=== PATIENT | female | born 2000 | race Caucasian/White ===

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

== ENCOUNTER 2021-01-20 18:13 | Emergency (ER) | payer OTHER, SELFPAY ==
--- NOTE | ~2021-01-20 | XR_ITS ---
EXAMINATION: XR hand RT min 3V DATE: 01/20/2021 18:34 INDICATION: Right hand injury. TECHNIQUE: 3 views of right hand were obtained. COMPARISON: None. FINDINGS: Bone alignment is normal. No fracture. Joint spaces are well maintained. IMPRESSION: 1. Normal right hand. Reviewed, dictated and finalized at location A. 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 Normal right hand.
--- NOTE | 2021-01-20 18:21 | ED.UPPEXIN ---
HPI - Extremity Injury (Upper) General Chief Complaint: Extremity Injury, Upper Stated Complaint: Right Thumb Pain Time Seen by Provider: 01/20/21 18:21 Source: patient, RN notes reviewed and old records reviewed History of Present Illness HPI narrative: 20-year-old female presents to the [facility] with complaints of right base of thumb palmar aspect pain swelling and bruising. Patient states that she tripped and fell yesterday. MD complaint: injury to: right Related Data Home Medications Medication Instructions Recorded Confirmed medroxyprogesterone [Depo-Provera] 150 mg IM DIRECTED 01/20/21 01/20/21 Allergies Allergy/AdvReac Type Severity Reaction Status Date / Time lidocaine gargle Allergy Intermediate swelling Uncoded 01/20/21 18:25 Cat Dander Allergy Unknown RASH Uncoded 01/20/21 18:25 Grass Allergy Unknown Unknown Uncoded 01/20/21 18:25 HAY AdvReac Mild Unknown Uncoded 01/20/21 18:25 Review of Systems Review of Systems: All systems reviewed & are unremarkable except as noted in HPI and below Constitutional: Constitutional: Reports no additional constitutional complaints Eyes: Eyes: Reports no additional eye complaints ENT: Reports system reviewed and no additional complaints, except as documented Cardiovascular: Cardiovascular: Reports no additional cardiovascular complaints Respiratory: Respiratory: Reports no additional respiratory complaints Musculoskeletal: Musculoskeletal: Reports as per HPI Comments: [place]airez aspect right hand base of thumb, bruising, swelling tenderness Integumentary/Breasts: Skin/Breast: Reports as per HPI and Denies erythema Neurologic: Reports system reviewed and no additional complaints, except as documented Psychiatric: Psychiatric: Reports no additional psychiatric complaints Allergic/Immunologic: Allergic/Immunologic: Reports no additional allergic/immunologic complaints [facility] Past Medical History Medical History 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, adult Hyponatremia nursing home current use of hormonal contraceptive Surgical History Surgical History History of bunionectomy [place] teeth removed Family History Family History Grandparent Family history of osteoporosis Family history of malignant neoplasm of ovary Mother Depression Family history of migraine headaches Asthma Other Family history of alcoholism Family history of arthritis Family history of malignant neoplasm Hypertension Social History Social History Smoking status: Never smoker Second hand tobacco smoke exposure: No Alcohol intake: never Substance use: never Substance use type: does not use 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 Gender identity (if verbalized by the patient): Female Comments At the time of my signature, I reviewed and agree with the nursing past medical, surgical, social, and family history. There is no relevant family history pertinent to the patient complaint. Exam Const: General: healthy appearing, no acute distress and alert Nutritional Appearance: well nourished Orientation/consciousness: patient oriented x3 Limitations: no limitations HENMT: Head: normal to inspection Eyes: Pupils: Equal, round and reactive pupils present Neck: Neck: normal visual inspection, no lymphadenopathy and no meningeal signs Chest: Chest palpation & inspection: normal inspection of the chest Resp: Effort & Inspection: normal respiratory effort Cardio: Rate: regular rate Back/Spine/Pelvis: Back: no CVA tenderness Skin: General skin exam: normal color Wounds: no wounds Neuro: General: patient oriented x3, moves all extremities, no meningeal signs and no focal motor deficits Speech: normal speech Gait exam (Neuro): Normal gait present Extrem: General:
[2021-01-20 18:23] VITALS: BP 133/80; PULSE 78; RESP 16; TEMP 37.2; O2SAT 100
== END 2021-01-20 18:55 | disposition home or self-care (01) ==
PROVIDERS: Emergency Provider Nurse Practitioner
DX: S60.221A Contusion of right hand, initial encounter (principal); W01.0XXA Fall on same level from slipping, tripping and stumbling without subsequent striking against object, initial encounter
CPT/HCPCS: 73130; 99213; G0463

== ENCOUNTER 2021-06-26 19:26 | Emergency (ER) | payer OTHER, SELFPAY ==
[2021-06-26 19:38] VITALS: BP 126/77; PULSE 99; RESP 16; TEMP 37.7; O2SAT 100
--- NOTE | 2021-06-26 19:48 | ED.GENADULT ---
HPI - General Adult General Chief complaint: Upper Respiratory Infection Stated complaint: Congestion Time Seen by Provider: 06/26/21 19:48 Source: patient and RN notes reviewed Mode of arrival: ambulatory Limitations: no limitations History of Present Illness HPI narrative: 21 y/o female presented for c/o sinus congestion and cough for about 2 weeks. States it causes headache and hoarse voice. Taking otc meds without relief. Denies sick contacts. Denies sob, wheezing, n/v/d/f/c. Related Data Home Medications Medication Instructions Recorded Confirmed medroxyprogesterone [Depo-Provera] 150 mg IM DIRECTED 01/20/21 01/20/21 Allergies Allergy/AdvReac Type Severity Reaction Status Date / Time lidocaine gargle Allergy Intermediate swelling Uncoded 04/23/21 12:16 Cat Dander Allergy Unknown RASH Uncoded 04/23/21 12:16 Grass Allergy Unknown Unknown Uncoded 04/23/21 12:16 HAY AdvReac Mild Unknown Uncoded 04/23/21 12:16 Review of Systems Review of Systems: CONSTITUTIONAL: denies malaise, chills, sweats, fever EYES: Denies visual changes, redness, or discharge ENT: Reports rhinorrhea, congestion, sinus pain, denies otalgia, sore throat CARDIOVASCULAR: Denies chest pain, palpitations, edema RESPIRATORY: Reports cough, post nasal drainage. Denies dyspnea GASTROINTESTINAL: Denies abdominal pain, nausea, vomiting, diarrhea SKIN: Denies rash or itching MUSCULOSKELETAL: denies myalgia NEUROLOGIC: Denies headache PMFSH Past Medical History Medical History (Updated 06/28/21 @ 10:12 by Starla Villatoro APRN) 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, adult Hyponatremia alf current use of hormonal contraceptive Surgical History Surgical History History of bunionectomy [place] teeth removed Family History Family History Grandparent Family history of osteoporosis Family history of malignant neoplasm of ovary Mother Depression Family history of migraine headaches Asthma Other Family history of alcoholism Family history of arthritis Family history of malignant neoplasm Hypertension Social History Social History Smoking status: Never smoker Second hand tobacco smoke exposure: No Alcohol intake: never Substance use: never Substance use type: does not use Additional 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 Gender identity (if verbalized by the patient): Female Exam Narrative: GENERAL: Ill-appearing, nontoxic HEAD: Normocephalic EYES: conjunctivae clear ENT: Mucous membranes moist. TM pearly zamudio with dull light reflex bilaterally; no tragal tenderness. Oropharynx erythematous without lesions or exudate, no drooling, no hoarseness, no trismus, uvula midline. No tripod positioning, muffled voice, soft palate or pharyngeal wall bulging NECK: Supple. No lymphadenopathy CHEST: Clear to auscultation, breath sounds equal. No wheezing, rhonchi, rales, or stridor. No respiratory distress, speaks in full sentences. HEART: Regular rate and rhythm. No murmur heard. SKIN: Warm, dry, no rash. NEURO: Alert and oriented x3. PSYCH: Normal mood and affect Course Course Emergency Course: Patient is aware of diagnosis, understands and agrees to treatment plan. Anticipatory guidance given. Patient agrees to follow-up as directed and is aware of reasons to seek care at the emergency department. Portions of this record may have been created with voice recognition software Level of Care: Express Care Visit Vital Signs Vital signs: Vital Signs Temperature 99.8 F H 06/26/21 19:38 Pulse Rate 99 06/26/21 19:38 Respiratory Rate 16 06/26/21 19:38 Blood Pressure 126/77 06/26/21 19:38 Pulse Oximetry 100 06/26/21 19:38 Temperature 99.8 F H 06/26/21 19:38 Pulse Rate 99 06/26/21 19:38 Respiratory Rate 16 06/26/21 19:38 Blood P
== END 2021-06-26 19:59 | disposition home or self-care (01) ==
PROVIDERS: Emergency Provider Nurse Practitioner Family
DX: J06.9 Acute upper respiratory infection, unspecified (principal)
CPT/HCPCS: 99213; G0463

== ENCOUNTER 2021-11-20 18:16 | Emergency (ER) | payer OTHER, SELFPAY ==
[2021-11-20 18:25] VITALS: BP 125/82; PULSE 105; RESP 16; TEMP 36.7; O2SAT 100
--- NOTE | 2021-11-20 19:12 | ED.URI ---
HPI - URI/Sore Throat General Chief Complaint: Upper Respiratory Infection Stated Complaint: fever Time Seen by Provider: 11/20/21 19:25 Source: patient, RN notes reviewed and old records reviewed Mode of arrival: ambulatory Limitations: no limitations History of Present Illness HPI Narrative: 21 year old female presents to [facility] care with complaints of 4 days of history of URI symptoms with some fevers, sinus congestion, cough with some shortness of breath. Patient states that she has an inhaler but whenever she uses it her heart rate will go up to 140-150's. Patient reports that her cough is nonproductive and some nasal congestion with drainage. MD elicited complaint: fever, cough, rhinorrhea and nasal congestion Onset (ago): day(s) (-5) Related Data Home Medications Medication Instructions Recorded Confirmed drospirenone 3 mg-ethinyl tablet 11/20/21 estradiol 0.02 mg tablet (Vestura (28)) midodrine 2.5 mg tablet mg 11/20/21 Allergies Allergy/AdvReac Type Severity Reaction Status Date / Time lidocaine gargle Allergy Intermediate swelling Uncoded 11/20/21 18:27 Cat Dander Allergy Unknown RASH Uncoded 11/20/21 18:27 Grass Allergy Unknown Unknown Uncoded 11/20/21 18:27 HAY AdvReac Mild Unknown Uncoded 11/20/21 18:27 Review of Systems Review of Systems: CONSTITUTIONAL: Reports fever, chills, or sweats. EYES: Denies visual changes, redness, or discharge. ENT: Reports rhinorrhea, congestion,no sore throat, or otalgia. CARDIOVASCULAR: Denies chest pain, palpitations, or edema. RESPIRATORY: Positive cough reports some dyspnea. GASTROINTESTINAL: Denies abdominal pain, nausea, vomiting, or diarrhea. GENITOURINARY: Denies dysuria or hematuria. SKIN: Denies rash or itching. MUSCULOSKELETAL: Denies back pain, joint pain, or myalgia. NEUROLOGIC: Denies headache, numbness, or weakness. PSYCHIATRIC: Positive anxiety or depression. 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 Surgical History Surgical History History of bunionectomy [place] teeth removed Family History Family History Grandparent Family history of osteoporosis Family history of malignant neoplasm of ovary Mother Depression Family history of migraine headaches Asthma Other Family history of alcoholism Family history of arthritis Family history of malignant neoplasm Hypertension Social History Social History Smoking status: Never smoker Second hand tobacco smoke exposure: No Alcohol intake: never Substance use: never Substance use type: does not use Additional occupation/education comments: 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 Gender identity (if verbalized by the patient): Female Comments At time of signature, agree with nursing past medical, surgical, social and family history. There is no relevant family history pertinent to the presenting complaint Exam Narrative: GENERAL: Well-appearing, well-nourished, and in no acute distress. HEAD: Normocephalic, atraumatic. EYES: PERRLA and EOMI. ENT: Nares with mild redness, clear rhinorrhea no epistaxis. Mucous membranes moist.TM's normal with good light reflex, throat red with no lesions or swelling. NECK: Supple.no lymphadenopathy CHEST: Clear to auscultation. No respiratory distress. SaO2 100% on room air, cough noted no tachypnea HEART: Regular rate and rhythm. No murmur heard. Normal peripheral pulses. ABDOMEN: Soft, nontender, nondistended, normal active bowel sounds. EXTREMITIES: Normal range of motion. No edema. SKIN: Warm, dry, no rash. NEURO: No focal deficits. Alert and oriented x3. Course Course Lev
== END 2021-11-20 19:30 | disposition home or self-care (01) ==
PROVIDERS: Emergency Provider Registered Nurse
DX: J06.9 Acute upper respiratory infection, unspecified (principal); R05.9 Cough, unspecified; Z20.822 Contact with and (suspected) exposure to COVID-19
CPT/HCPCS: 87426; 87804; 99213; C9803; G0463

== ENCOUNTER 2022-01-24 16:50 | Emergency (ER) | payer OTHER, SELFPAY ==
[2022-01-24 17:01] VITALS: BP 123/75; PULSE 82; RESP 20; TEMP 37.4; O2SAT 100
--- NOTE | 2022-01-24 17:20 | ED.URI ---
HPI - URI/Sore Throat General Chief Complaint: Upper Respiratory Infection Stated Complaint: migrane, vomiting, productive cough Time Seen by Provider: 01/24/22 17:20 Source: patient, RN notes reviewed and old records reviewed Mode of arrival: ambulatory Limitations: no limitations History of Present Illness HPI Narrative: 21-year-old female presents to the [facility] with complaints of vomiting, productive cough and headache since yesterday. Has not taken anything for symptoms. Reports a frontal headache. Currently no vomiting today. Patient appears nontoxic. Vitals are stable. Related Data Home Medications Medication Instructions Recorded Confirmed drospirenone 3 mg-ethinyl tablet 11/20/21 estradiol 0.02 mg tablet (Vestura (28)) midodrine 2.5 mg tablet mg 01/24/22 Allergies Allergy/AdvReac Type Severity Reaction Status Date / Time lidocaine gargle Allergy Intermediate swelling Uncoded 01/24/22 17:13 Cat Dander Allergy Unknown RASH Uncoded 01/24/22 17:13 Grass Allergy Unknown Unknown Uncoded 01/24/22 17:13 HAY AdvReac Mild Unknown Uncoded 01/24/22 17:13 Review of Systems Review of Systems: All systems reviewed & are unremarkable except as noted in HPI and below Constitutional: Constitutional: Reports no additional constitutional complaints, Denies chills and Denies fever(s) Eyes: Eyes: Reports no additional eye complaints ENT: Reports as per HPI Cardiovascular: Cardiovascular: Reports no additional cardiovascular complaints Respiratory: Respiratory: Reports as per HPI and Reports cough Gastrointestinal: Gastrointestinal: Reports no additional gastrointestinal complaints Musculoskeletal: Musculoskeletal: Reports no additional musculoskeletal complaints Integumentary/Breasts: Skin/Breast: Reports system reviewed and no additional complaints, except as docu Neurologic: Reports system reviewed and no additional complaints, except as documented Psychiatric: Psychiatric: Reports no additional psychiatric complaints Allergic/Immunologic: Allergic/Immunologic: Reports no additional allergic/immunologic complaints [facility] Past Medical History Medical History (Updated 01/24/22 @ 20:01 by Em Quinn APRN) 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, adult Hyponatremia intermediate current use of hormonal contraceptive Surgical History Surgical History History of bunionectomy [place] teeth removed Family History Family History Grandparent Family history of osteoporosis Family history of malignant neoplasm of ovary Mother Depression Family history of migraine headaches Asthma Other Family history of alcoholism Family history of arthritis Family history of malignant neoplasm Hypertension Social History Social History Smoking status: Never smoker Second hand tobacco smoke exposure: No Alcohol intake: never Substance use: never Substance use type: does not use 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 Gender identity (if verbalized by the patient): Female Comments At the time of my signature, I reviewed and agree with the nursing past medical, surgical, social, and family history. There is no relevant family history pertinent to the patient complaint. Exam Const: General: healthy appearing, comfortable, no acute distress, well developed, alert and well nourished Nutritional Appearance: well nourished Orientation/consciousness: patient oriented x3 Limitations: no limitations HENMT: Head: normal to inspection Ears: external ears normal, TM's normal bilaterally and EAC's normal Face/Nose/Sinus: Normal external nose present and Normal nares present Face and sinus: sinus tenderness frontal and maxillary Mouth: Yes Normal oral and palatal mucosa present, Yes lip normal and Yes moist mucous membranes Throat: p
== END 2022-01-24 18:15 | disposition home or self-care (01) ==
PROVIDERS: Emergency Provider Nurse Practitioner
DX: J06.9 Acute upper respiratory infection, unspecified (principal); Z20.822 Contact with and (suspected) exposure to COVID-19
CPT/HCPCS: 87426; 87804; 99213; C9803; G0463

== ENCOUNTER 2022-05-23 12:23 | Emergency (ER) | payer OTHER, SELFPAY ==
[2022-05-23] VITALS (16 sets, daily range): BP systolic 96–138; BP diastolic 58–101; PULSE 66–103; RESP 13–23; TEMP 36.8; O2SAT 99–100
--- NOTE | ~2022-05-23 | CT_ITS ---
EXAMINATION: CTA chest PE protocol DATE: 05/23/2022 15:23 INDICATION: Chest pain and dyspnea TECHNIQUE: Computed tomography (CT) pulmonary angiogram of the chest was performed with 100 mL Omnipa que-350 intravenous contrast. Additional 3D reconstructions utilizing coronal maximum intensity proje ction (MIP) were performed. Automated exposure control and iterative reconstruction technique were em ployed. The dose-length product was 140.90 mGy-cm. COMPARISON: None FINDINGS: Excellent contrast opacification of the pulmonary arteries. There is mild streak artifact from dense contrast in the superior vena cava and right atrium. Mild scattered respiratory motion artifact most prominent at the lung bases where it decreases sensitivity in some of the smaller basilar subsegmenta l pulmonary arteries. No pulmonary embolism. No pulmonary nodules, pulmonary edema, pneumonia or pleu ral effusion. Heart size is normal. No pericardial effusion. Thoracic aorta is normal in caliber with no dissection. Visualized upper abdomen and bones are unremarkable. IMPRESSION: 1. No pulmonary embolism or other acute cardiopulmonary disease. Reviewed, dictated and finalized at location B.
--- NOTE | ~2022-05-23 | XR_ITS ---
EXAMINATION: XR chest 2V DATE: 05/23/2022 12:59 INDICATION: Palpitations. Lightheadedness. Shortness of breath. TECHNIQUE: Frontal and lateral views of the chest were obtained. COMPARISON: Chest 2 views 08/18/2003 FINDINGS: The chest demonstrates clear lungs without pneumonia, pleural effusion, or pneumothorax. Th e heart size is normal. IMPRESSION: 1. No acute cardiopulmonary disease. Reviewed, dictated and finalized at location A.
--- NOTE | 2022-05-23 12:25 | ECG_ITS ---
Measurements Intervals [place] Rate: 78 P: 35 TN: 115 QRS: 58 QRSD: 85 T: 3 QT: 357 QTc: 407 Interpretive Statements SINUS RHYTHM WITH SHORT TN INTERVAL NONSPECIFIC T-WAVE ABNORMALITY- ANT/INF LEADS BASELINE ARTIFACT- I, II, AVR BORDERLINE ECG NO PREVIOUS ECG AVAILABLE FOR COMPARISON Electronically Signed On 05-23-2022 12:41:02 CDT by Wili Kovacs D.O.
--- NOTE | 2022-05-23 12:38 | ED.GENADULT ---
HPI - General Adult General Chief complaint: Arrhythmia/Palpitations Stated complaint: palpitations Time Seen by Provider: 05/23/22 12:30 Source: RN notes reviewed History of Present Illness HPI narrative: Patient presents emergency department from home for palpitations. Patient symptoms began approximately 7 AM this morning. States that she felt like her heart was racing going as high as 150 bpm and then coming down to 40 bpm states that she noted a low blood pressure in the 90s with that as well. Patient states she has a history of hypertension and arrhythmias and [facility] seen a erp specialist. She states that she did take midodrine with improvement states that she does have some mild feeling of chest tightness with the symptoms she denies any fevers or chills shortness of breath abdominal pain nausea vomiting or any other symptoms Related Data Home Medications Medication Instructions Recorded Confirmed drospirenone 3 mg-ethinyl tablet 11/20/21 estradiol 0.02 mg tablet (Vestura (28)) midodrine 2.5 mg tablet mg 01/24/22 Allergies Allergy/AdvReac Type Severity Reaction Status Date / Time oseltamivir [From Tamiflu] Allergy Swelling Verified 05/23/22 12:24 of Lip/Tongue/Throat lidocaine gargle Allergy Intermediate swelling Uncoded 01/24/22 17:13 Grass Allergy Unknown Unknown Uncoded 01/24/22 17:13 HAY AdvReac Mild Unknown Uncoded 01/24/22 17:13 Review of Systems Review of Systems: Gen.: Denies fevers or chills ENT: Denies congestion Respiratory: Denies shortness of breath or cough CV: See HPI GI: Denies abdominal pain nausea, emesis or diarrhea Musculoskeletal: Denies back pain or muscle pain Neuro: Denies numbness, tingling, weakness or focal weakness Skin: Denies rash Except as documented, all other systems reviewed and negative [facility] Past Medical History Medical History (Updated 05/23/22 @ 17:29 by Tye Olson DO) 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, adult 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 Surgical History Surgical History History of bunionectomy [place] teeth removed Family History Family History Grandparent Family history of osteoporosis Family history of malignant neoplasm of ovary Mother Depression Family history of migraine headaches Asthma Other Family history of alcoholism Family history of arthritis Family history of malignant neoplasm Hypertension Social History Social History Smoking status: Never smoker Second hand tobacco smoke exposure: No Alcohol intake: never Substance use: never Substance use type: does not use Living arrangements: with family Occupation/Education: student Additional occupation/education comments: 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 Gender identity (if verbalized by the patient): Female Exam Narrative: APPEARANCE: No acute distress, nontoxic, resting in bed EYES: EOMI HEENT: Normocephalic, atraumatic, OMM RESPIRATORY: No respiratory distress Clear to auscultation bilaterally with no rhonchi wheezing or rales. CARDIOVASCULAR: Regular rate and rhythm without murmurs rubs or gallops. ABDOMINAL: Soft, nontender, nondistended, no rebound or guarding MUSCULOSKELETAl: Moves all extremities. No clubbing, cyanosis or edema. NEURO: Awake and alert. Following commands, speech normal, no focal deficits SKIN:: Warm, dry. 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 Discussed need for follow-up with primary care, proper use of medication, and reasons to return to the emergency department. Patient understands and agrees to current
[2022-05-23 12:57] LABS: Basophils Absolute Auto 0.1 K/mm3 (0.0-0.1); Basophils Percent Auto 0.6 % (0.2-1.2); Eosinophils Percent Auto 0.2 % (0-4.4); Hematocrit 43.7 % (37.0-47.0); Hemoglobin 14.8 g/dL (12.0-15.0); Immature Granulocyte Absolute 0.02 K/mm3 (0.00-0.031); Immature Granulocyte Percent A 0.2 % (0-0.5); Lymphocytes Absolute Auto 1.78 K/mm3 (0.9-3.2); Lymphocytes Percent Auto 18.9 % (18.3-44.2); Mean Corpuscular HGB Conc 33.9 g/dl (32-36); Mean Corpuscular Hemoglobin 31.7 pg (26-34); Mean Corpuscular Volume 93.6 fl (80-100); Mean Platelet Volume 10.3 fl (7.4-10.4); Monocytes Absolute Auto 0.7 K/mm3 (0.1-0.6); Monocytes Percent Auto 6.9 % (2.6-8.5); Neutrophils Absolute Auto 6.9 K/mm3 (1.3-6.7); Neutrophils Percent Auto 73.2 % (45.5-73.1); Platelet Count Result 249 k/mm3 (150-375); Red Blood Count 4.67 M/mm3 (4.2-5.4); Red Cell Distribution Width 11.9 % (11.5-14.5); White Blood Count 9.4 K/mm3 (4.5-10.0)
[2022-05-23 13:08] LABS: INR 1.1; Partial Thromboplastin Time 24.4 SECONDS (22.3-36.8); Prothrombin Time 13.5 Seconds (11.1-14.7)
[2022-05-23 13:17] LABS: Alanine Aminotransferase 20 U/L (6-35); Albumin Level 5.2 g/dL (3.5-5.1); Alkaline Phosphatase 61 U/L (38-126); Anion Gap 13 mmol/L (8-16); Aspartate Amino Transferase 23 U/L (14-36); Bilirubin,Total 0.8 mg/dL (0.2-1.3); Blood Urea Nitrogen 16 mg/dL (7-17); Calcium 9.6 mg/dL (8.4-10.2); Carbon Dioxide 23 mmol/L (22-30); Chloride 106 mmol/L (98-107); Estimated CRCL calculation 99 ml/min; Estimated Glomerular Filt Rate > 60; Glucose 90 mg/dL (65-110); Lipase 127 U/L (23-300); Potassium 3.7 mmol/L (3.4-5.0); Sodium 142 mmol/L (137-145)
[2022-05-23] MEDS: SODIUM CHLORIDE 0.9% IV 1,000 ML 999 ML IV CONT (13:19)
[2022-05-23 13:21] LABS: Troponin I < 0.012 ng/mL (0.000-0.034)
[2022-05-23] MEDS: ASPIRIN 81 MG CHEWABLE TABLET 324 MG PO (13:25)
[2022-05-23 13:55] LABS: D Dimer 0.59 ug/mL (<0.48)
[2022-05-23 16:54] LABS: Troponin I < 0.012 ng/mL (0.000-0.034)
== END 2022-05-23 18:01 | disposition home or self-care (01) ==
PROVIDERS: Emergency Provider Emergency Medicine; PCP Nurse Practitioner
DX: R00.2 Palpitations (principal); I10 Essential (primary) hypertension; R07.9 Chest pain, unspecified; Z79.3 Long term (current) use of hormonal contraceptives
CPT/HCPCS: 36415; 71046; 71275; 80053; 81025; 83690; 83735; 84443; 84484; 85025; 85380; 85610; 85730; 93005; 96360; 96361; 99284; A9270; J7030; Q9967

== ENCOUNTER 2022-09-26 09:00 | Emergency (ER) | payer OTHER, SELFPAY ==
[2022-09-26] VITALS (9 sets, daily range): BP systolic 115–138; BP diastolic 67–99; PULSE 67–81; RESP 15–20
--- NOTE | ~2022-09-26 | XR_ITS ---
EXAMINATION: XR chest 1V portable DATE: 09/26/2022 10:22 INDICATION: Near syncope. TECHNIQUE: A single frontal view of the chest was obtained. COMPARISON: Chest 2 views 05/23/2022 FINDINGS: The chest demonstrates clear lungs without pneumonia, pleural effusion, or pneumothorax. Th e heart size is normal. IMPRESSION: 1. No acute cardiopulmonary disease. Reviewed, dictated and finalized at location A.
--- NOTE | 2022-09-26 09:08 | ECG_ITS ---
Measurements Intervals [place] Rate: 72 P: 22 VA: 117 QRS: 52 QRSD: 91 T: 30 QT: 362 QTc: 396 Interpretive Statements SINUS RHYTHM WITH SHORT VA INTERVAL BORDERLINE ECG COMPARED TO ECG 05/23/2022 12:33:27 NO SIGNIFICANT CHANGES Electronically Signed On 09-26-2022 10:05:54 CDT by Wili Kovacs D.O.
--- NOTE | 2022-09-26 09:52 | ED.DIZZY ---
HPI - Dizziness General Chief Complaint: Syncope Stated Complaint: Vision issues near syncope Time Seen by Provider: 09/26/22 09:26 Source: patient Mode of arrival: ambulatory Limitations: no limitations History of Present Illness HPI Narrative: This is a 22-year-old female who presents to the ED with chief complaint of near syncope onset this morning around 830. Patient states that she had a prodrome of symptoms including feeling a little dizzy and lightheaded, she started to have some vision problems in the left eye. 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 She states this was transient, but she felt like she was going to have a syncopal event. She states that she has never fully passed out but is currently being worked up by cardiology. She had a Holter monitor and was referred to visitor services technician but has been unable to make an appointment. Denies head injury, numbness, weakness, speech change, any current vision problems, chest pain, palpitations or shortness of breath. Related Data Home Medications Medication Instructions Recorded Confirmed drospirenone 3 mg-ethinyl tablet 11/20/21 estradiol 0.02 mg tablet (Vestura (28)) midodrine 2.5 mg tablet mg 01/24/22 Allergies Allergy/AdvReac Type Severity Reaction Status Date / Time oseltamivir [From Tamiflu] Allergy Swelling Verified 05/23/22 12:24 of Lip/Tongue/Throat lidocaine gargle Allergy Intermediate swelling Uncoded 01/24/22 17:13 Grass Allergy Unknown Unknown Uncoded 01/24/22 17:13 HAY AdvReac Mild Unknown Uncoded 01/24/22 17:13 [facility] Past Medical History Medical History (Updated 09/26/22 @ 10:37 by Arian Hwang PA-C) 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, adult Hyponatremia detention current use of hormonal contraceptive Surgical History Surgical History History of bunionectomy [place] teeth removed Family History Family History Grandparent Family history of osteoporosis Family history of malignant neoplasm of ovary Mother Depression Family history of migraine headaches Asthma Other Family history of alcoholism Family history of arthritis Family history of malignant neoplasm Hypertension Social History Social History Smoking status: Never smoker Second hand tobacco smoke exposure: No Alcohol intake: never Substance use: never Substance use type: does not use Living arrangements: with family Occupation/Education: student Additional occupation/education comments: 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 Gender identity (if verbalized by the patient): Female Exam Narrative: GENERAL: Well-appearing, well-nourished, and in no acute distress. HEAD: Normocephalic, atraumatic. EYES: PERRLA and EOMI. ENT: Nares clear, no rhinorrhea or epistaxis. Mucous membranes moist. Oropharynx without tonsillar hypertrophy exudate or other lesions. NECK: Supple. No adenopathy or masses. CHEST: No respiratory distress. Clear to auscultation. No wheezes rales or rhonchi HEART: Regular rate and rhythm. No murmur heard. Normal peripheral pulses. ABDOMEN: Soft, nontender, nondistended, normal active bowel sounds. MSK: Normal range of motion. No edema. SKIN: Warm, dry, no rash. NEURO: Alert and oriented x3. No focal deficits. PSYCH: Normal mood and affect. Course Vital Signs Vital signs: Vital Signs Pulse Rate 81 09/26/22 09:15 Respiratory Rate 19 09/26/22 09:15 Blood Pressure 118/76 09/26/22 09:15 Pulse Rate 76 09/26/22 10:30 Respiratory Rate 20 09/26/22 10:30 Blood Pressure 122/67 09/26/22 10:30 MDM - Dizziness MDM Narrative Medical decision making narrative: This is a 22-year-old female who presents to the ED with chief complaint of near syncope. Vitals are normal. She has a normal physi
[2022-09-26 09:54] LABS: Basophils Absolute Auto 0.1 K/mm3 (0.0-0.1); Basophils Percent Auto 0.8 % (0.2-1.2); Eosinophils Percent Auto 0.5 % (0-4.4); Hematocrit 42.3 % (37.0-47.0); Hemoglobin 14.1 g/dL (12.0-15.0); Immature Granulocyte Absolute 0.02 K/mm3 (0.00-0.031); Immature Granulocyte Percent A 0.3 % (0-0.5); Lymphocytes Absolute Auto 1.64 K/mm3 (0.9-3.2); Lymphocytes Percent Auto 26.2 % (18.3-44.2); Mean Corpuscular HGB Conc 33.3 g/dl (32-36); Mean Corpuscular Hemoglobin 31.2 pg (26-34); Mean Corpuscular Volume 93.6 fl (80-100); Mean Platelet Volume 10.3 fl (7.4-10.4); Monocytes Absolute Auto 0.6 K/mm3 (0.1-0.6); Monocytes Percent Auto 8.9 % (2.6-8.5); Neutrophils Percent Auto 63.3 % (45.5-73.1); Platelet Count Result 210 k/mm3 (150-375); Red Blood Count 4.52 M/mm3 (4.2-5.4); Red Cell Distribution Width 12.1 % (11.5-14.5); White Blood Count 6.3 K/mm3 (4.5-10.0)
[2022-09-26 09:59] LABS: Alanine Aminotransferase 23 U/L (6-35); Alkaline Phosphatase 48 U/L (38-126); Anion Gap 14 mmol/L (8-16); Aspartate Amino Transferase 27 U/L (14-36); Bilirubin,Total 0.6 mg/dL (0.2-1.3); Blood Urea Nitrogen 16 mg/dL (7-17); Carbon Dioxide 24 mmol/L (22-30); Chloride 103 mmol/L (98-107); Estimated Glomerular Filt Rate > 60; Glucose 84 mg/dL (65-110); Potassium 3.8 mmol/L (3.4-5.0); Sodium 141 mmol/L (137-145)
[2022-09-26 10:27] LABS: Appearance Urine Clear (Clear); Bacteria Urine 1+ /hpf; Bilirubin Urine Negative (Negative); Blood Urine 2+ (Negative); Color Urine Yellow (Yellow); Glucose Urine UA Negative (Negative); Ketones Urine Negative (Negative); Leukocyte Esterase Ur 1+ LEU/UL (Negative); Nitrate Urine Negative (Negative); Non Pathogenic Casts 0-2; Protein Urine Negative (Negative); RBC Urine 0-2 /hpf (0-2); Specific Grav Ur 1.027 (1.001-1.035); Squamous Epithelial Cell Urine Few /hpf (Few); pH Urine 5.5 (5.0-9.0)
[2022-09-26 10:29] LABS: Add Urine Microscopic? YES
[2022-09-26] MEDS: KETOROLAC 30 MG/ML VIAL (*BKC) IM (10:54)
== END 2022-09-26 11:18 | disposition home or self-care (01) ==
PROVIDERS: Preventive Medicine Aerospace Medicine; Emergency Provider Physician Assistant; PCP Nurse Practitioner
DX: R55 Syncope and collapse (principal); Z79.3 Long term (current) use of hormonal contraceptives
CPT/HCPCS: 36415; 71045; 80053; 81001; 81025; 85025; 87086; 93005; 96372; 99284; J1885

== ENCOUNTER 2023-04-21 15:06 | Emergency (ER) | payer OTHER, SELFPAY ==
[2023-04-21 15:07] VITALS: BP 133/82; PULSE 82; RESP 20; TEMP 36.4; O2SAT 100
--- NOTE | 2023-04-21 16:27 | PC.NURSE ---
pt ambulated out of ED stating ill go home get something to eat I just have a migraine
== END 2023-04-21 16:41 | disposition left against medical advice (07) ==
LOC: ANHED 16:35
PROVIDERS: PCP Nurse Practitioner
DX: R51.9 Headache, unspecified (principal)
CPT/HCPCS: 99199

== ENCOUNTER 2023-06-30 13:16 | Outpatient (CLI) | payer OTHER, SELFPAY | END 2023-06-30 13:17 | disposition home or self-care (01) | LOC: ANHSURGERY 13:21 | PROVIDERS: PCP Nurse Practitioner; Visit Provider Obstetrics & Gynecology | DX: N94.6 Dysmenorrhea, unspecified (principal); N92.0 Excessive and frequent menstruation with regular cycle; R10.2 Pelvic and perineal pain; Z01.818 Encounter for other preprocedural examination | CPT/HCPCS: 36415; 86850; 86900; 86901 ==

== ENCOUNTER 2023-07-10 02:42 | Day surgery (SDC) | payer OTHER, SELFPAY ==
[2023-06-29 15:10] VITALS: BMI 22.1
--- NOTE | 2023-06-29 15:24 | SUR.PREOP ---
Report to the Outpatient Waiting Room, entrance under the green pavilion located off [facility], at time 9:00am on date 07/10/2023. Planned Procedure Time: 11:00am. Time changes happen often and if your time is changed the preop area will call you the afternoon before. - You and your visitor will be asked to self-screen and do not enter if you have any COVID symptoms. - A mask is optional within the hospital at this time. Patients may have clear liquids (water, carbonated beverages, clear teas, apple juice) until 3 hours prior to surgery with a maximum of 20 ounces. - No food from midnight until time of surgery - Infants may have breast milk until 4 hours before surgery, infant formula 6 hours prior to surgery. - Children will be allowed to drink immediately following surgery. If applicable, please bring a bottle or sippy cup to assist with drinking. Juice, water, soda, and popsicles are readily available. For infants on formula, please bring formula the day of surgery. Pacifiers are allowed. Take the following medications with a SIP of water the morning of surgery: midodrine, propranolol DO NOT STOP ANY OF YOUR OTHER PRESCRIPTION MEDICATIONS PRIOR TO SURGERY ?EXCEPT THE FOLLOWING Medications to discontinue per physician N/A Date to take last dose N/A Please no make-up, nail yemeni, hairspray, perfume, deodorant, or body powder the day of surgery. No jewelry (including any body piercings) or valuables the day of surgery, leave them at home. Please take a shower or bath the night before, or the morning of, surgery with an antibacterial soap. Wear comfortable, loose fitting clothing. Children are encouraged to wear pajamas. - Jewelry must be removed prior to entering the operating room. Rings and piercings that are not removed may be cut off. - The hospital will not accept responsibility for valuables. - Please leave all valuables, including medications, at home the day of surgery. If you are going home after surgery, a licensed electric screw driver operator must drive you home. - NO public transportation without another adult if you receive anesthesia. - We recommend that an adult stay with you for 24 hours following discharge. - We also recommend that you do not drive, make important decision, drink alcoholic beverages, or take any drugs that were not prescribed by your health care provider for at least 24 hours after your discharge time. For Pediatric surgeries, we recommend two adults accompany the child home. Follow any additional instructions given to you from your surgeon. If you or anyone in your household have experienced Covid symptoms in the past week, please notify your surgeon or the nurse liaison at the phone number below for possible testing. Telephone instructions given to Rita Rodríguez and asked if any additional questions and then verbalized understanding. Patient advised to call surgeon office or pre surgery nurse liaison [phone] if any additional questions.
--- NOTE | 2023-07-07 07:12 | PM.IMHP ---
H&P: HPI History of Present Illness Date/Time: 07/07/23 07:12 Chief Complaint: Pelvic pain and irregular bleeding Narrative: Is a very pleasant 23-year-old 0 admitted for diagnostic laparoscopy secondary to pelvic pain with irregular bleeding. Patient has had negative STD testing. She had negative imaging. There is a strong family history of endometriosis. Risks and benefits of this procedure reviewed including but not exclusive of , aspiration pneumonia, bleeding, transfusion, perforation injury to bowel, bladder, ureters, or other internal organs with need for open laparotomy. She received the ACOG handout entitled laparoscopy. She had all questions answered. 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 Surgical History Surgical History History of bunionectomy [place] teeth removed Family History Family History Grandparent Family history of osteoporosis Family history of malignant neoplasm of ovary Mother Depression Family history of migraine headaches Asthma Other Family history of alcoholism Family history of arthritis Family history of malignant neoplasm Hypertension Social History Social History Years smoked: 2 Smoking status: Current some day smoker Tobacco type: e-cigarettes/vaping Second hand tobacco smoke exposure: No Alcohol intake: current Drinks per week: 1 Substance use: never Substance use type: does not use Living arrangements: alone Occupation/Education: student 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 Gender identity (if verbalized by the patient): Female Spiritual care concerns: No Meds Home Medications and Allergies Home Medications Medication Instructions Recorded Confirmed Type midodrine 2.5 mg tablet 2.5 mg PO TID PRN Hypotension 01/24/22 06/29/23 History ondansetron 4 mg disintegrating 4 mg PO PRN PRN Nausea 06/29/23 06/29/23 History tablet propranolol 10 mg tablet 12.5 mg PO BID 06/29/23 06/29/23 History Allergies Allergy/AdvReac Type Severity Reaction Status Date / Time latex Allergy Hives Verified 06/29/23 15:30 oseltamivir [From Tamiflu] Allergy Swelling Verified 06/29/23 15:04 of Lip/Tongue/Throat lidocaine gargle Allergy Intermediate swelling Uncoded 06/29/23 15:04 Grass Allergy Unknown Unknown Uncoded 06/29/23 15:04 HAY AdvReac Mild Unknown Uncoded 06/29/23 15:04 Exam Const: General: cooperative, healthy appearing, comfortable and average body habitus Orientation/consciousness: oriented to person, oriented to place and oriented to time HENMT: Head: normal to inspection Resp: Effort & Inspection: normal respiratory effort Cardio: Rate: regular rate Rhythm: regular rhythm Heart sounds: S1 normal heart sound present and S2 normal heart sound present GI: Inspection: normal to inspection : External Female Exam: normal external appearance Speculum Exam - Vagina: normal appearance of the vagina Speculum Exam - Cervix: normal appearance of the cervix Bimanual exam- vagina & uterus: Uterine tenderness Bimanual Exam- Adnexa, other: tender bilaterally Assessment and Plan Assessment and plan (1) Pelvic pain: Code(s): R10.2 - Pelvic and perineal pain Status: Acute Plan Proceed with diagnostic laparoscopy
[2023-07-10] VITALS (8 sets, daily range): BP systolic 102–133; BP diastolic 72–84; PULSE 54–72; RESP 13–18; TEMP 36.4–37.4; O2SAT 98–100
--- NOTE | 2023-07-10 06:35 | WPDHPUPDATE1 ---
History and Physical Update Update Date/Time: 07/10/23 06:35 History and Physical has been reviewed, including an updated exam of the patient. There are NO changes in the patient's condition. Risks, benefits, and alternatives have been discussed and questions answered. Patient agrees to proceed with procedure.
[2023-07-10] MEDS: LACTATED RINGERS 1,000 ML 30 ML IV CONT ×2 (07:45→10:12)
--- NOTE | 2023-07-10 07:55 | WPDANESEPPF ---
Anes - Initial Pre Proc Eval Procedure: Operation Date: 07/10/23 09:30 Proposed Procedures p Diagnostic Laparoscopy - Khanh Brewer MD Date/Time: 07/10/23 07:55 Surgeon: Khanh Brewer MD Pre Op Diagnosis: pelvic pain, heavy bleeding, dysmenorrhea Patient Data Age: 23 Gender: F Height: 1.6 m Weight: 56.7 kg Allergies Allergy/AdvReac Type Severity Reaction Status Date / Time latex Allergy Hives Verified 06/29/23 15:30 oseltamivir [From Tamiflu] Allergy Swelling Verified 06/29/23 15:04 of Lip/Tongue/Throat lidocaine gargle Allergy Intermediate swelling Uncoded 06/29/23 15:04 Grass Allergy Unknown Unknown Uncoded 06/29/23 15:04 HAY AdvReac Mild Unknown Uncoded 06/29/23 15:04 Home Medications Medication Instructions Recorded Confirmed Type midodrine 2.5 mg tablet 2.5 mg PO TID PRN Hypotension 01/24/22 06/29/23 History ondansetron 4 mg disintegrating 4 mg PO PRN PRN Nausea 06/29/23 06/29/23 History tablet propranolol 10 mg tablet 12.5 mg PO BID 06/29/23 06/29/23 History hydrocodone 5 mg-acetaminophen 325 1 tablet PO Q4H PRN pain #20 tabs 07/10/23 Rx mg tablet Patient hx anesthesia problems: post op nausea/vomiting Family hx anesthesia problems: none Results Review: All pre-operative results and documents have been reviewed as part of the pre-operative evaluation. 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 Surgical History Surgical History History of bunionectomy [place] teeth removed Family History Family History Grandparent Family history of osteoporosis Family history of malignant neoplasm of ovary Mother Depression Family history of migraine headaches Asthma Other Family history of alcoholism Family history of arthritis Family history of malignant neoplasm Hypertension Social History Social History Years smoked: 2 Smoking status: Current some day smoker Tobacco type: e-cigarettes/vaping Second hand tobacco smoke exposure: No Alcohol intake: current Drinks per week: 1 Substance use: never Substance use type: does not use Living arrangements: alone Occupation/Education: student 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 Gender identity (if verbalized by the patient): Female Spiritual care concerns: No Anes - Eval Final PreProcedure Day of Procedure 07/10/23 07:55 Patient weight: normal Heart: regular rate and rhythm Lungs: clear to auscultation Airway: Mallampati scale class II Neurological: alert and oriented Last oral intake: >/= 8 hours ASA classification: II Emergent: no Anesthetic plan: proceed Anesthesia type and monitoring: general ETT and standard monitoring Results Review: All pre-operative results and documents have been reviewed as part of the pre-operative evaluation. Informed Consent: The patient's anesthetic plan and its attendant risks and benefits were discussed with the patient/family/POA. Questions were solicited and answers provided to the satisfaction of the patient/family/POA.
[2023-07-10] MEDS: SCOPOLAMINE 1 MG PATCH 1 PATCH TRANSDERM (08:23)
--- NOTE | 2023-07-10 10:00 | W.PM.PROC2 ---
Procedure Note - Detailed Date of Procedure 07/10/23 Pre-op Diagnosis pelvic pain, heavy bleeding, dysmenorrhea Post-op Diagnosis Other (Pelvic pain dysmenorrhea /endometriosis) Procedure Performed laparoscopic destruction of endometriosis Surgeon Khanh Brewer MD Anesthesia General Indications this is a 23-year-old female 0 with history of family endometriosis and severe pelvic pain Findings endometriosis along the uterosacral ligaments. Normal-appearing ovaries and tubes. Normal-appearing uterus. Normal-appearing appendix and gallbladder and liver edge Description of Procedure patient was prepped draped in the normal sterile fashion placed in the dorsal lithotomy position. Excellent general trach anesthesia weighted speculum placed posterior fornix vagina. Anterior lip of the cervix grasped with single-tooth tenaculum. Stewart's cannula inserted attached to the single-tooth to be used later for uterine ablation. After emptying the bladder clear urine the weighted speculum was removed. Gloves were changed. At An infraumbilical incision made the Veress needle passed in the abdomen. Filled with CO2 gas [id number]. A 5mm trocar advanced under visualization assuring no injury. Patient placed in Trendelenburg a suprapubic incision made the 5mm trocar advanced under direct visualization assuring no injury. Serosanguineous fluid seen in the cul-de-sac and this was rinsed. Multiple areas of powder burn endometriosis were seen along the uterosacral ligaments were on the left than on the right. Photo documentation undertaken in these were proceeded to be destroyed a 35 w per 2nd with monopolar cautery. Irrigation undertaken until clear. The appendix liver gallbladder all appeared within normal limits and photo documentation was undertaken. The lower site removed. The gas removed from the abdomen. The upper site removed. The incisions closed with 4 Monocryl glue. All sponge, needle, instrument counts were correct. There were no immediate complications Estimated Blood Loss 5 Drains No Packing No Pathology None sent Complications No immediate complications Condition Stable Disposition PACU
[2023-07-10] MEDS: fentaNYL CITRATE INJ (*CRX) 100 MCG/2 ML VIAL 25 MCG IV PUSH ×4 (10:37→10:46)
[2023-07-10] MEDS: oxyCODONE HCL (*CRX) 5 MG TAB IR PO (11:40)
== END 2023-07-10 12:10 | disposition home or self-care (01) ==
PROVIDERS: PCP Nurse Practitioner; Visit Provider Obstetrics & Gynecology
PROC: (CPT 49320; principal; 2023-07-10 09:30)
DX: N80.3C3 Endometriosis of bilateral uterosacral ligament(s), unspecified depth (principal); F17.290 Nicotine dependence, other tobacco product, uncomplicated
CPT/HCPCS: 58662; 36415; 86850; 86900; 86901; A9270; J1100; J1885; J2250; J2405; J2704; J3010; J7120

== ENCOUNTER 2024-04-15 01:35 | Day surgery (SDC) | payer OTHER, SELFPAY ==
[2024-04-14 10:36] VITALS: BMI 23.6
--- NOTE | 2024-04-14 10:42 | PC.NURSE ---
Report to the Outpatient Waiting Room, entrance under the green pavilion located off [facility], at time _1100_ on date _[phone]_. Planned Procedure Time: _1pm_.? Time changes happen often and if your time is changed the preop area will call you the afternoon before. - You and your visitor will be asked to self-screen and do not enter if you have any COVID symptoms. Please call surgeon if you need to reschedule. - A mask is optional within the hospital at this time. Patients may have clear liquids (water, carbonated beverages, clear teas, apple juice) until 3 hours prior to surgery with a maximum of 20 ounces. - No food from midnight until time of surgery and no smoking, or chewing tobacco (or any form of nicotine). No chewing gum, candy or mints. Take only the following medications with a SIP of water on the morning of surgery: ___Propanolol and if needed may take Midodrine DO NOT STOP ANY OF YOUR OTHER PRESCRIPTION MEDICATIONS PRIOR TO SURGERY EXCEPT THE FOLLOWING Hold all vitamins and supplements for 3 days per anesthesiologist. Medications to discontinue per physician ____None Date to take last dose Please no make-up, nail guatemalan, hairspray, perfume, deodorant, or body powder the day of surgery.? No jewelry (including any body piercings) or valuables the day of surgery, leave them at home.? Please take a shower or bath the night before, or the morning of, surgery with an antibacterial soap.? Wear comfortable, loose fitting clothing.? - Jewelry must be removed prior to entering the operating room.? Rings and piercings that are not removed may be cut off. - The hospital will not accept responsibility for valuables.? - Please leave all valuables, including medications, at home the day of surgery. If you are going home after surgery, a licensed catering truck driver must drive you home.? - NO public transportation without another adult if you receive anesthesia. - We recommend that an adult stay with you for 24 hours following discharge. - We also recommend that you do not drive, make important decision, drink alcoholic beverages, or take any drugs that were not prescribed by your health care provider for at least 24 hours after your discharge time. Follow any additional instructions given to you from your surgeon. Telephone instructions given to __Grace__and asked if any additional questions and then verbalized understanding. Patient advised to call surgeon office or pre surgery nurse liaison [phone] if any additional questions.
--- NOTE | 2024-04-14 11:54 | P.HP_ITS ---
H&P: HPI History of Present Illness Date/Time: 04/14/24 11:54 Chief Complaint: Incomplete Narrative: pleasant 24-year-old 1 para 0 1st trimester with incomplete AB proven by ultrasound imaging. She will undergo suction dilatation curettage. 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 Hyponatremia Surgical History Surgical History History of bunionectomy [place] teeth removed Family History Family History Grandparent Family history of osteoporosis Family history of malignant neoplasm of ovary Mother Depression Family history of migraine headaches Asthma Other Family history of alcoholism Family history of arthritis Family history of malignant neoplasm Hypertension Social History Social History Years smoked: 2 Smoking status: Current every day smoker Tobacco type: e-cigarettes/vaping Second hand tobacco smoke exposure: No Alcohol intake: current Drinks per week: 1 Substance use: never Substance use type: does not use Living arrangements: with family Occupation/Education: student Additional occupation/education comments: 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 Gender identity (if verbalized by the patient): Female Spiritual care concerns: No Meds Home Medications and Allergies Home Medications ?Medication ?Instructions ?Recorded ?Confirmed ?Type midodrine 2.5 mg tablet 2.5 mg PO TID PRN Hypotension 01/24/22 04/14/24 History propranolol 10 mg tablet 12.5 mg PO BID 06/29/23 04/14/24 History Allergies Allergy/AdvReac Type Severity Reaction Status Date / Time latex Allergy Hives Verified 04/14/24 10:35 oseltamivir (From Tamiflu) Allergy Swelling Verified 04/14/24 10:35 of Lip/Tongue/Throat lidocaine gargle Allergy Intermediate swelling Uncoded 04/14/24 10:35 Grass Allergy Unknown Unknown Uncoded 04/14/24 10:35 HAY AdvReac Mild Unknown Uncoded 04/14/24 10:35 Exam Const: General: cooperative, healthy appearing and comfortable Resp: Effort & Inspection: normal respiratory effort Cardio: Rate: regular rate Rhythm: regular rhythm Heart sounds: S1 normal heart sound present and S2 normal heart sound present GI: Inspection: normal to inspection Auscultation: normal bowel sounds : External Female Exam: normal external appearance Speculum Exam - Vagina: normal appearance of the vagina Speculum Exam - Cervix: normal appearance of the cervix Bimanual exam- vagina & uterus: enlarged Bimanual Exam- Adnexa, other: normal adnexae Assessment and Plan Assessment and plan (1) Incomplete : Code(s): O03.4 - Incomplete spontaneous without complication Status: Acute Plan proceed with suction dilatation curettage
--- OUTSIDE RECORDS SUMMARY | 2024-04-15 01:38 | XMS_ITS | Clinical Summary ---
Author Organization [facility] Address [address] [place] [address] Care Team Providers Care Cinnamon Grinder Name Role Phone Pau Hernandez APRN-LUTE PACKER OR APPLIER Primary Care Provi shayy Wilfred Toussaint MD Unavailable [phone] Source Comments [facility],non-owned Affiliates and Associated Physician Practices is amultiple site organization consisting of ambulatory clinics and hospital sitesin [place], [place], [place] and [place]. This disclosure is being madepursuant to the Care Everywhere program and may not contain all information available regarding this patient. Last updated 17.[facility] Allergies Active Allergy Reactions Criticality Noted Date Comments Bee Pollen Urticaria Medium 10/08/2020 Latex Rash Medium 07/10/2020 Rash Molds & Smuts Itching,Swelling Medium 01/02/2021 Itchy throat Face swelling Oseltamivir Vomiting Low 03/11/2022 Patient stated she threw up blood when she took this medication. Benadryl was taken to counter act and she was fine a while later. Patient stated she threw up blood when she took this medication. Benadryl was taken to counter act and she was fine a while later. Pollen Extract Urticaria Medium 10/08/2020 Wasp Venom Anaphylaxis High 10/08/2020 Medications * Be aware that medications may not be up to date on this document. Alwaysverify current medications with the patient. 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,Hypermobilit y arthralgia Take 1 (one) tablet by mouth once daily 30 tablet 03/10/2023 Active cephalexin (Keflex) 500 MG capsule Take 1 (one) capsule by mouth 2 times daily 07/10/2023 Active ondansetron (Zofran) 4 MG tablet Take 1 (one) tablet by mouth every 6 hours as needed for Nausea/Vomiting Active Active Problems Problem Noted Date Diagnosed Date Contact dermatitis 10/07/2021 Orthostatic hypotension 10/07/2021 Palpitations 10/07/2021 Syncope 10/07/2021 Allergic rhinitis 08/15/2021 Irritable bowel syndrome with diarrhea Mild intermittent asthma 08/15/2021 Painful lumpy right breast 11/23/2020 Right ovarian cyst 10/08/2020 Vomiting 07/16/2015 Pain in female pelvis 05/29/2015 Right ankle sprain 02/27/2015 Dysmenorrhea 10/24/2014 Right lower quadrant abdominal pain 10/24/2014 Immunizations Name Administration Dates Next Due DTAP/IPV 2001 DTaP VACCINE IM (6wk-6yrs) 10/08/2006,,2001,07/02 HEP B VACCINE, PED/ADOL 02/01/2002,2001, HIB-HAEMOPHILUS INFLUENZAE B CONJUGATE VACCINE 02/01/2002,2001 HIB-PRP-OMP 3 DOSE 2001 INFLUENZA VACCINE, CELL CULT URE, QUADR. (FLUCELVAX QUADRIVALENT; 6MO+) (CCIIV4) 01/02/2021,12/31/2020 INFLUENZA VACCINE, QUADR. (F LUZONE; FLULAVAL; FLUARIX; AFLURIA QUADRIVALENT; 6MO+), 0.5 ML (IIV4) 12/10/2019,01/04/2019 MENINGOCOCCAL CONJUGATE (MCV4P) 10/08/2018,10/18 MMR 10/08/2006,05/12/2002 POLIO IPV 10/08/2006,09/06/2002,2001 Pneumococcal Pcv13 Conj 05/12/2002,09/02,2001,05/19 TDAP (7yrs+) 10/31/2011 VARICELLA 12/21/2015,02/01/2002 Social History Tobacco Use Types Packs/Day Years Used Date Smoking Tobacco: Never Smokeless Tobacco: Never Tobacco Cessation:Counseling Given: Not Answered Alcohol Use Standard Drinks/Week Comments Yes 0 (1 standard drink = 0.6 oz pur e alcohol) social PHQ-2 Answer Date Recorded Patient Health Questionnaire-2 Score 0 03/10/2023 Sex and Gender Information Value Date Recorded Sex Assigned at Not on file Gender Identity Not on file Sexual Orientation Not on file Last Filed Vital Signs Vital Sign Reading Time Taken Comments Blood Pressure 102/68 07/14/2023 10:00 AM CDT Pulse 60 07/14/2023 10:00 AM CDT Temperature 36.9 C (98.4 F) 07/14/2023 10:00 AM CDT Respiratory Rate - - Oxygen Saturation 99% 07/14/2023 10:00 AM CDT Inhaled Oxygen Concentration - - Weight 57.6 kg (127 lb) 07/14/2023 10:00 AM CDT Height 162.6 cm (5' 4 ) 07/14/2023 10:00 AM CDT Body Mass Index 21.8 07/14/2023 10:00 AM CDT Plan of Treatment Health Maintenance Due Date Last Done Comments PNEUMOCOCCAL VACCINE (1 of 1 - PPSV23) 2007 05/12/2002, 2001, 2001, Additional history exists HIV SCREENING 02/01/2016 HPV VACCINE (1 - 3-dose series) 02/01/2016 CHLAMYDIA/GONORRHEA SCREENING 2017 MENINGOCOCCAL (Group B) VACC INE (1 of 2 - Standard) 2017 DTAP/TDAP/TD VACCINES (7 - T d or Tdap) 10/30/2021 10/31/2011, 10/08/2006, 09/06/2002, Additional history exists COVID-19 VACCINE (3 - 2023-2 5 season) 2023 04/08/2020, 03/18/2020 INFLUENZA VACCINE (#1) 2023 , 01/02/2021, 12/31/2020, Additional history exists DEPRESSION SCREENING 03/09/2024 03/10/2023, 11/12/19 23 PAP SMEAR 08/23/2024 08/23/2021 ZOSTER VACCINE (1 of 2) 2051 HEPATITIS B VACCINE Completed 02/01/2002, 2001, 2001 HIB VACCINE Completed 02/01/2002, 06/08, 2001 MENINGOCOCCAL VACCINE Completed 10/08/2018, 016 HEPATITIS C SCREENING Completed 11/12/2022 Procedures Procedure Name Priority Date/Time Associated Diagnosis Comments HEPATITIS C ANTIBODY W RFLX PCR 11/12/2022 2:46 PM CDT from Last 3 Months or Most Recently Relevant to Health Maintenance Results * HEPATITIS C ANTIBODY W RFLX PCR (11/12/2022 2:46 PM CDT) Hepatitis C Antibody Non Reactive Non Reactive [facility] 11/12/2022 2:46 PM CDT 11/12/2022 Narrative Resulting Agency Comment Lab Testing performed at: [facility] [address] [facility] [id number] Saadia Londono MD LAB - CHEMISTR Y ORDERABLES [facility] [address] [place] [address] from Last 3 Months or Most Recently Relevant to Health Maintenance Care Teams Cinnamon Grinder Relationship Specialty Start Date End Date Pau Hernandez, MERCHANDISE MANAGER-LUTE PACKER OR APPLIER [address] [place] [address] PCP - General 12/16/21 Wilfred Toussaint MD [address] [facility] [address] [employer], [address] [address] Obstetrics and Gynecology 04/20/23
--- OUTSIDE RECORDS SUMMARY | 2024-04-15 01:38 | XMS_ITS | Referral Summary ---
Author Organization [facility] Address [address] [place] [address] Care Team Providers Care Spar Machine Operator Helper Name Role Phone Michelle Izaguirre MD Unavailable [phone] Pau Hernandez MD Unavailable [phone] No, Physician Primary Care Provider [phone] Allergies Active Allergy Reactions Criticality Noted Date Comments Bee Pollen Hives Medium 10/08/2020 Latex Rash Medium 07/10/2020 Rash Lidocaine Swelling,Rash High 10/13/2017 Mold Itching,Swelling Medium 01/02/2021 Itchy throat Face swelling Oseltamivir Vomiting Low 03/11/2022 Patient stated she threw up blood when she took this medication. Benadryl was taken to counter act and she was fine a while later. Wasp Venom Anaphylaxis High 10/08/2020 Medications albuterol HFA (PROVENTIL HFA,VENTOLIN HFA,PROAIR HFA) 90 mcg/actuation inhaler Inhale 2 puffs every 6 (six) hours as needed 1 Active midodrine (PROAMATINE) 2.5 mg tablet Take 1 tablet (2.5 mg total) by mouth 3 (three) times a day 2 Active ferrous sulfate 325 mg (65 mg of elemental iron) tablet Take 1 tablet (325 mg total) by mouth daily Active vitamins no.2 ( VITAMIN NO.2 ORAL) Take by mouth daily Active moxifloxacin (VIGAMOX) 0.5 % ophthalmic solution INSTILL 1 DROP INTO LEFT EYE EVERY TWO HOURS 3 Active ondansetron ODT (ZOFRAN-ODT) 4 mg disintegrating tabletIndications:A cute PID (pelvic inflammatory disease),Nausea Take 1 tablet (4 mg total) by mouth every 8 (eight) hours as needed for nausea or vomiting for up to 40 doses 20 tablet 1 3 Active propranoloL (INDERAL) 10 mg tablet Take 1 tablet (10 mg total) by mouth 2 (two) times a day 4 Active meloxicam (MOBIC) 15 mg tablet Take 1 tablet (15 mg total) by mouth daily 4 Active Active Problems Problem Noted Date Diagnosed Date Pelvic floor dysfunction in female 12/08/2022 Menorrhagia with irregular cycle 12/08/2022 Irritable bowel syndrome with diarrhea 2 Allergic rhinitis 08/15/2021 Mild intermittent asthma 08/15/2021 Right ovarian cyst 10/08/2020 Vomiting 07/16/2015 Pain in female pelvis 05/29/2015 Right ankle sprain 02/27/2015 Right lower quadrant abdominal pain 10/24/2014 Dysmenorrhea 10/24/2014 Immunizations Name Administration Dates Next Due DTaP 10/08/2006, 3,2001,07/02 DTaP / IPV 2001 Hep B, Adolescent or Pediatric 02/01/2002,2001,2001 HiB 02/01/2002,2001 Hib (HbOC) 02/01/2002,2001 Hib (PRP-OMP) 2001 IPV 10/08/2006,09/06/2002,2001 Influenza, Quadrivalent, Michelle l Culture-based MDCK, Preservative Free, Antibiotic Free, Intramuscular 01/02/2021,12/31/2020 Influenza, Quadrivalent, Spl it, Preservative Free, Intramuscular 12/10/2019,01/04/2019 Influenza, Trivalent, Cell Culture-based MDCK, Preservative Free, Antibiotic Free, Intramuscular 01/02/2021,12/31/2020 Influenza, Unspecified 02/04/2022,12/31/2020 MMR 10/08/2006,05/12/2002 Meningococcal MCV4, Unspecified 10/19/2015 Meningococcal MCV4P (Menactra) 10/08/2018,2015 Pneumococcal Conjugate PCV 13 05/12/2002 ,2001,2001,05/19 Tdap 10/31/2011 Varicella 12/21/2015,02/01/2002 Social History Tobacco Use Types Packs/Day Years Used Date Smoking Tobacco: Some Days Vaping Smokeless Tobacco: Never Tobacco Cessation:Ready to Q uit: Not Asked; Counseling Given: Not Answered Alcohol Use Standard Drinks/Week Comments No 0 (1 standard drink = 0.6 oz pur e alcohol) Personal Safety Answer Date Recorded Getting School Help Needed Not on file 04/17 Comments No Sex and Gender Information Value Date Recorded Sex Assigned at Not on file Legal Sex Female 4:05 AM MEDICAL INSTRUMENT CABLE FABRICATOR Gender Identity Female 12/18/2017 3:52 PM CDT Sexual Orientation Not on file Last Filed Vital Signs Vital Sign Reading Time Taken Comments Blood Pressure 142/91 12/10/2022 2:18 PM CDT Pulse 82 04/03/2022 7:51 AM MEDICAL INSTRUMENT CABLE FABRICATOR Temperature 36.9 C (98.5 F) 12/04/2021 1:07 PM CDT Respiratory Rate 16 04/03/2022 7:51 AM MEDICAL INSTRUMENT CABLE FABRICATOR Oxygen Saturation 100% 08/21/2021 11:18 AM CDT Inhaled Oxygen Concentration - - Weight 56.2 kg (124 lb) 12/10/2022 2:18 PM CDT Height 162.6 cm (5' 4 ) 12/10/2022 2:18 PM CDT Body Mass Index 21.28 12/10/2022 2:18 PM CDT Plan of Treatment Not on file Procedures Procedure Name Priority Date/Time Associated Diagnosis Comments N. GONORRHOEAE/C. TRACHOMATIS AMPLIFICATION Routine 08/23/2021 1:48 PM CDT Routine screening for STI (sexually transmitted infection) from Last 3 Months or Most Recently Relevant to Health Maintenance Results * N. gonorrhoeae/C. trachomatis Amplification Urine (08/23/2021 1:48 PM CDT) C. trachomatis Not Detected Not Detected [facility] N. gonorrhoeae Not Detected Not Detected [facility] Comment: Interpretive Data Testing performed by the [facility]. This assay detects Chlamydia trachomatis and Neisseria gonorrhoeae by nucleic acid amplification testing (NAAT). This test is approved by the [place] Food and Drug Administration and the performance characteristics have been verified by the laboratory. The performance characteristics of this test have not been evaluated in individuals less than 14 years of age. Current Interpretive Data was last revised on 2018. Urine (None) 08/23/2021 1:48 PM CDT 08/23/2021 1:48 PM CDT us Wilfred Toussaint MD LAB MICROBIOLOGY - GENERAL ORDERABLES Final Result [facility] Department [place] [address] from Last 3 Months or Most Recently Relevant to Health Maintenance Insurance [facility] [facility]O Address: [facility] [address] [place] [address] [facility] [employer]O Address: [address] [place] [address] [place] [address] [employer] Address: [address] [place] [address] Care Teams Spar Machine Operator Helper Relationship Specialty Start Date End Date No, Physician PCP - General 08/25/22 Michelle Izaguirre MD 07/10/20 Pau Hernandez MD Nurse Practitioner 10/10/20
--- OUTSIDE RECORDS SUMMARY | 2024-04-15 01:38 | XMS_ITS | Encounter Summary ---
Author Organization [facility] Address [address] [place] [address] Care Team Providers Care It Help Desk Associate Name Role Phone Pau Hernandez NP Primary Care Provider [phone] Encounter Details Date Type Department Care Team (Late Contact Info) Description 09/03/2022 MyChart Message Enc [facility] [address] [place], [place] [address] [employer] Provider Air Quality Message Social History Tobacco Use Types Packs/Day Years Used Date Smoking Tobacco: Never Smokeless Tobacco: Never Comments:The provider can pr ovide you with more information about quitting. Alcohol Use Standard Drinks/Week Comments Yes 0 (1 standard drink = 0.6 oz pur e alcohol) rare PHQ-2 Answer Date Recorded PHQ-2 Score - If the patient scores above 3, please move on to questions 3-9 1 10/07/2021 Comments No Sex and Gender Information Value Date Recorded Sex Assigned at Not on file Legal Sex Female 10:29 AM CDT Gender Identity Not on file Sexual Orientation Not on file documented as of this encounter Plan of Treatment Upcoming Encounters Date Type Department Care Team (Late Contact Info) Description 11/08/2024 9:00 AM CDT Office Visit [facility] [address] [place] [address] Faisal Carr MD [facility] [address] [place] [address] documented as of this encounter Visit Diagnoses Not on filedocumented in this encounter Additional Health Concerns Assessment Noted Time PHQ-9 Depression Total Score: 5 10/08/19 22 4:10 PM CDT documented as of this encounter Care Teams It Help Desk Associate Relationship Specialty Start Date End Date Pau Hernandez NP [address] [place] [address] PCP - General NURSE PRACTITIONER 10/04/20 documented as of this encounter
--- OUTSIDE RECORDS SUMMARY | 2024-04-15 01:38 | XMS_ITS | Clinical Summary ---
Author Organization [facility] Address [facility] [place] [address] Care Team Providers Care Veneer Joiner Name Role Phone Pau Hernandez NP Primary Care Provider [phone] Allergies Active Allergy Reactions Criticality Noted Date Comments Oseltamivir Vomiting 03/11/2022 Patient stated she threw up blood when she took this medication. Benadryl was taken to counter act and she was fine a while later. Wasp Venom Anaphylaxis High 10/08/2020 Medications EPINEPHrine (EPIPEN 2-ALEXANDER) 0.3 MG/0.3ML injectionIndicat ions:Environment al and seasonal allergies Inject 0.3 mLs (0.3 mg total) into the muscle as needed for Anaphylaxis . 2 each 10/08/2020 Active ondansetron (ZOFRAN) 4 MG tabletIndication s:Nausea Take 1 tablet (4 mg total) by mouth every 8 (eight) hours as needed for Nausea. 10 tablet 08/01/2022 Active midodrine (PROAMATINE) 2.5 MG tabletIndication s:POTS (postural orthostatic tachycardia syndrome) take 1 tablet by mouth 3 times daily. 270 tablet 1 07/03/2023 Active propranolol (INDERAL) 10 MG tablet Take 1 tablet (10 mg total) by mouth 2 (two) times daily. 180 tablet 1 11/03/2023 Active Active Problems Problem Noted Date Diagnosed Date Endometriosis determined by laparoscopy 02/11/20 24 Overview (02/11/2024): Follows with Dr. Brie Brewer. Had laparoscopy to confirm an had removed but pt tells me she has another transvaginal US and some of her endo did come back. She is not having any current concerns. She states she may have a biopsy done in future by her oyster unloader. Assessment & Plan (02/11/2024 8:34 AM CONTROL EQUIPMENT ELECTRICIAN): Continue to follow up with oyster unloader as directed. Hypermobile joints 02/05/2023 Positive TREVON (antinuclear antibody) 02/05/2023 Contact dermatitis 10/07/2021 Orthostatic hypotension 10/07/2021 Overview (02/11/2024): Follows with Dr. Carr for management of her POTS. She is taking midodrine and propranolol which has been helpful. Assessment & Plan (02/11/2024 8:36 AM CONTROL EQUIPMENT ELECTRICIAN): Continue to follow with cardio as directed. Encourage to stay well hydrated and med managed as directed by cardio. Palpitations 10/07/2021 Syncope 10/07/2021 Allergic rhinitis 08/15/2021 Irritable bowel syndrome with diarrhea 2 Mild intermittent asthma (HHS/HCC) 08/15/2021 Painful lumpy right breast 11/23/2020 Right ovarian cyst 10/08/2020 Dysmenorrhea 10/24/2014 Resolved Problems Problem Noted Date Diagnosed Date Resolved Date Right lower quadrant abdominal pain 10/24/2014 10/08/2020 Encounters Date Type Department Care Team Description 03/18/2024 Telephone [facility] Family [facility] - [place] [address] [place] [address] Pau Hernandez NP Lab Order 02/11/2024 8:00 AM CONTROL EQUIPMENT ELECTRICIAN Office Visit [facility] - [place] [address] [place] [address] Pau Hernandez NP Annual (Patient presents for an adult routine exam) 02/11/2024 Travel from Last 3 Months Immunizations Name Administration Dates Next Due DTaP-IPV (Kinrix) 2001 Dtap 10/08/2006, 3,2001,07/02 Hepatitis B Pediatric 02/01/2002,2001,04/10 Hib 02/01/2002,2001 Hib (Generic) 02/01/2002,2001 Hib (PedvaxHIB)3 Dose 2001 Influenza Adult (Generic) 02/04/2022,,12/31/2020,12/09,01/04/2019 MMR 10/08/2006,05/12/2002 Menactra 10/08/2018 Meningococcal (Menactra) 10/19/2015 Meningococcal Vac A,C,Y,W-135 Sc 10/19/2015 PFIZER COVID-19 (ORIGINAL FO RMULATION, PURPLE CAP) mRNA, LNP-S, PF, 30 MCG/0.3 ML DOSE 04/08/2020,03/18/2020 Pneumococcal (Prevnar 13) 05/12/2002,,2001,05/19 Polio IPV (Ipol) 10/08/2006,09/06/2002, 2 Tdap (Generic) 10/31/2011 Varicella (Varivax) 12/21/2015 Varicella Vaccine 02/01/2002 Family History Medical History Relation Comments Hypertension Father Hyperadrenergic POTS Maternal Aunt Heart Disease Maternal Grandmother Lupus Maternal Grandmother Hypertension Mother Breast Cancer Other unsure of age. Heart Disease Paternal Grandfather Stroke Paternal Grandfather cardiac stents Paternal Grandfather Atrial fibrillation Paternal Grandmother Relation Status Comments Father Alive Maternal Aunt Maternal Grandfather Maternal Grandmother Mother Alive Other Alive Paternal Grandfather Paternal Grandmother Alive Social History Tobacco Use Types Packs/Day Years Used Date Smoking Tobacco: Never Passive Smoke Exposure: Never Smokeless Tobacco: Never Tobacco Cessation:Counseling Given: No Alcohol Use Standard Drinks/Week Comments Yes 1 (1 standard drink = 0.6 oz pur e alcohol) rare PHQ-2 Answer Date Recorded Patient Health Questionnaire-2 Score 0 02/11/2024 Comments No Sex and Gender Information Value Date Recorded Sex Assigned at Not on file Legal Sex Female 10:29 AM CDT Gender Identity Not on file Sexual Orientation Not on file Last Filed Vital Signs Vital Sign Reading Time Taken Comments Blood Pressure 88/62 02/11/2024 8:09 AM CONTROL EQUIPMENT ELECTRICIAN Pulse 78 02/11/2024 8:09 AM CONTROL EQUIPMENT ELECTRICIAN Temperature 37.2 C (98.9 F) 02/11/2024 8:09 AM CONTROL EQUIPMENT ELECTRICIAN Respiratory Rate 18 02/11/2024 8:09 AM CONTROL EQUIPMENT ELECTRICIAN Oxygen Saturation 100% 02/11/2024 8:09 AM CONTROL EQUIPMENT ELECTRICIAN Inhaled Oxygen Concentration - - Weight 54.9 kg (121 lb) 02/11/2024 8:09 AM CONTROL EQUIPMENT ELECTRICIAN Height 165.1 cm (5' 5 ) 02/11/2024 8:09 AM CONTROL EQUIPMENT ELECTRICIAN Body Mass Index 20.14 02/11/2024 8:09 AM CONTROL EQUIPMENT ELECTRICIAN Plan of Treatment Upcoming Encounters Date Type Department Care Team (Late st Contact Info) Description 11/08/2024 9:00 AM CDT Office Visit [facility] [address] [place] [address] Faisal Carr MD Three [facility] [place] [address] Health Maintenance Due Date Last Done Comments Pneumococcal Vaccine: Pediatrics (0 to 5 Years) and At-Risk Patients (6 to 64 Years) (1 of 1 - PPSV23 or PCV20) 2007 05/12/2002, 2001, 2001, Additional history exists HPV Vaccines (1 - 3-dose series) 02/01/2016 Meningococcal B Vaccine (1 of 2 - Standard) 2017 DTaP, Tdap and Td Vaccines (7 - Td or Tdap) 10/30/2021 10/31/2011, 10/08/2006, 09/06/2002, Additional history exists COVID-19 Vaccine (3 - season) 2023 04/08/2020, 03/18/2020 PHQ-2 (Physician [place]arrow) 03/09/2024 02/11/2024 Annual Physical 02/10/2025 02/11/2024, 01/09, 10/08/2020 Influenza Adult (#1) 2025 02/04/2022, 01/02/2021, 12/31/2020, Additional history exists Postponed from 12/08/2023 (Patient Refused) Cervical Cancer Screening Pap Smear (Age 21 to 29) Every 3 Years 06/14/2026 06/15/2023, 08/23/2021, 08/15/2021 Cervical Cancer Screening 06/14/2026 Hepatitis B Vaccines Completed 02/01/2002, 2001, 2001 Meningococcal Vaccine Completed 10/08/2018 , 10/19/2015, 10/19/2015 Hepatitis C Completed 11/12/2022, 08/2022, 11/12/2022, Additional history exists RSV Immunizations Under 20 Months Aged Out No longer eligible based on patient's age to complete this topic Procedures Procedure Name Priority Date/Time Associated Diagnosis Comments HCG QUANT (SERUM)-CHORIONIC GONADOTROPIN Routine 03/18/2024 2:46 PM CONTROL EQUIPMENT ELECTRICIAN , unspecified gestational age (HHS/HCC) OUTSIDE CYTOPATH CERV/VAG INTERPRET (PAP) 06/15/2023 HEPATITIS C ANTIBODY 10/12/2020 9:05 AM CDT from Last 3 Months or Most Recently Relevant to Health Maintenance Results * (ABNORMAL) HCG QUANT (SERUM)-CHORIONIC GONADOTROPIN (03/18/2024 2:46 PM CONTROL EQUIPMENT ELECTRICIAN) HCG NON 118(H) mIU/mL [facility] Comment: Reference Range Non or premenopausal <5 Postmenopausal <10 Values from different assay methods may vary. The use of this assay to monitor or to diagnose patients with cancer or any condition unrelated to has not been cleared or approved by the FDA or the hearings reporter of the assay. 03/18/2024 2:46 PM CONTROL EQUIPMENT ELECTRICIAN 03/18/2024 2:46 PM CONTROL EQUIPMENT ELECTRICIAN Narrative Resulting Agency Comment Performing Organization Information: Site ID: [id number] Name: [facility] Address: [address] [id number] Director: Brayden Jackson MD us Pau Hernandez NP LABORATORY Final Res ult [facility] [address] [place] [address], [place] * PAP SMEAR WITH HPV (06/15/2023) 06/15/2023 us [facility] Scanned SCANNING Final Resu lt * HEPATITIS C ANTIBODY (10/12/2020 9:05 AM CDT) HEPATITIS C AB <0.1 0.0 - 0.9 s/co ratio [facility] 1 Comment: Negative: < 0.8 Indeterminate: 0.8 - 0.9 Positive: > 0.9 The CDC recommends that a positive HCV antibody result be followed up with a HCV Nucleic Acid Amplification test ([id number]). 10/12/2020 9:05 AM CDT 10/12/2020 Narrative [facility] - 10/13/2020 5:06 AM CDT Performed at: 01 - [facility] [place] [id number] Thermometer Production Worker: Vinayak Hernandez PhD, Phone: [phone] us Pauisai Hernandez UPS DRIVER LABORATORY Final Res ult [facility] [address] [place] [address] [facility] 1 from Last 3 Months or Most Recently Relevant to Health Maintenance Insurance [facility] Care Teams Veneer Joiner Relationship Specialty Start Date End Date Pau Henrandez NP [address] [place] [address] PCP - General NURSE PRACTITIONER 10/04/20
--- OUTSIDE RECORDS SUMMARY | 2024-04-15 01:38 | XMS_ITS | Encounter Summary ---
Author Organization [facility] Address [facility] [place] [address] Care Team Providers Care Whale Trainer Name Role Phone Pau Hernandez NP Primary Care Provider [phone] Encounter Details Date Type Department Care Team (Late st Contact Info) Description 08/05/2022 [employer] Message Enc [facility] Family Medicine - [place] [address] [address] Brittaney Pires NP Follow up Social History Tobacco Use Types Packs/Day Years [...] on file Sexual Orientation Not on file COVID-19 Exposure Response Date Recorded In the last 10 days, have yo u been in contact with someone who was confirmed or suspected to have Coronavirus/COVID-19? No / Unsure 08/01/2022 12:49 PM CDT documented as of this encounter Plan of Treatment Upcoming Encounters Date Type Department Care Team (Late st Contact Info) Description 11/08/2024 9:00 AM CDT Office Visit [facility], [place] [address] [place] [address] Faisal Carr MD Three [facility] [address] [place] [address] documented as of this encounter Visit Diagnoses Not on filedocumented in this encounter Additional Health Concerns Assessment Noted Time PHQ-9 Depression Total Score: 5 10/08/19 22 4:10 PM CDT documented as of this encounter Care Teams Whale Trainer Relationship Specialty Start Date End Date Pau Hernandez NP [address] [place] [address] PCP - General NURSE PRACTITIONER 10/04/20 documented as of this encounter
--- OUTSIDE RECORDS SUMMARY | 2024-04-15 01:38 | XMS_ITS | Patient Health Summary ---
Author Organization [facility] Address [address] [place] [address] Care Team Providers Care Educational Sign Language Interpreter Name Role Phone Pau Hernandez APRN-[facility] Primary Care Provi shayy Wilfred Toussaint MD Unavailable [phone] Note from [facility],non-owned Affiliates and Associated Physician Practices is amultiple site organization consisting of ambulatory clinics and hospital sitesin [place], [place], [place] and [place]. This disclosure is being madepursuant to the Care Everywhere program and may not contain all information available regarding this patient. Last updated 17.[facility] Allergies * Bee Pollen(Urticaria) -Medium Criticality * Latex(Rash) -Medium Criticality * Molds & Smuts(Itching,Swelling) -Medium Criticality * Oseltamivir(Vomiting) -Low Criticality * Pollen Extract(Urticaria) -Medium Criticality * Wasp Venom(Anaphylaxis) -High Criticality * Lidocaine(Rash,Swelling) -High Criticality,Inactive Medications * Be aware that medications may not be up to date on this document. Alwaysverify current medications with the patient. * EPINEPHrine (Auvi-G) 0.15 MG/0.15ML auto-injector pen Inject 0.15 mg into muscle * midodrine (Proamatine) 2.5 MG tablet Take 1 (one) tablet by mouth 2 times daily as needed * diphenhydrAMINE (Benadryl) 25 MG capsule Take 1 (one) capsule by mouth every 6 hours as needed * propranolol (Inderal) 10 MG tablet(Started 01/22/2023) Take 1 (one) tablet by mouth 2 times daily * meloxicam (Mobic) 15 MG tablet(Started 03/10/2023) Take 1 (one) tablet by mouth once daily * cephalexin (Keflex) 500 MG capsule(Started 07/10/2023) Take 1 (one) capsule by mouth 2 times daily * ondansetron (Zofran) 4 MG tablet Take 1 (one) tablet by mouth every 6 hours as needed for Nausea/Vomiting Active Problems Problem Noted Date Diagnosed Date Contact dermatitis 10/07/2021 Orthostatic hypotension 10/07/2021 Palpitations 10/07/2021 Syncope 10/07/2021 Allergic rhinitis 08/15/2021 Irritable bowel syndrome with diarrhea Mild intermittent asthma 08/15/2021 Painful lumpy right breast 11/23/2020 Right ovarian cyst 10/08/2020 Vomiting 07/16/2015 Pain in female pelvis 05/29/2015 Right ankle sprain 02/27/2015 Dysmenorrhea 10/24/2014 Right lower quadrant abdominal pain 10/24/2014 Immunizations * DTAP/IPV(Given 2001) * DTaP VACCINE IM (6wk-6yrs)(Given 10/08/2006, 09/06/2002, 2001, 2001) * HEP B VACCINE, PED/ADOL(Given 02/01/2002, 2001, 2001) * HIB-HAEMOPHILUS INFLUENZAE B CONJUGATE VACCINE(Given 02/01/2002, 2001) * HIB-PRP-OMP 3 DOSE(Given 2001) * INFLUENZA VACCINE, CELL CULTURE, QUADR. (FLUCELVAX QUADRIVALENT; 6MO+) (CCIIV4)(Given 01/02/2021, 12/31/2020) * INFLUENZA VACCINE, QUADR. (FLUZONE; FLULAVAL; FLUARIX; AFLURIA QUADRIVALENT; 6MO+), 0.5 ML (IIV4)(Given 12/10/2019, 01/04/2019) * MENINGOCOCCAL CONJUGATE (MCV4P)(Given 10/08/2018, 10/19/2015) * MMR(Given 10/08/2006, 05/12/2002) * POLIO IPV(Given 10/08/2006, 09/06/2002, 2001) * Pneumococcal Pcv13 Conj(Given 05/12/2002, 2001, 2001, 2001) * TDAP (7yrs+)(Given 10/31/2011) * VARICELLA(Given 12/21/2015, 02/01/2002) Social History Tobacco Use Types Packs/Day Years [...] Mass Index 21.8 07/14/2023 10:00 AM CDT Procedures * MRI SACRUM SI JOINTS W WO CONT(Performed 04/17/2023) Performed for Bilateral low back pain without sciatica, unspecified chronicity, Livedo reticularis,Arthralgia of knee, unspecified laterality, Raynaud's disease without gangrene, Hypermobility arthralgia * CREATININE - POCT INTERFACED(Performed 04/17/2023) * LUPUS ANTICOAGULANT PANEL(Performed 03/10/2023) Performed for Raynaud's disease without gangrene * BETA-2 GLYCOPROTEIN 1 ANTIBODY IGA(Performed 03/10/2023) Performed for Raynaud's disease without gangrene * BETA-2 GLYCOPROTEIN 1 ANTIBODY IGG/IGM PANEL(Performed 03/10/2023) Performed for Raynaud's disease without gangrene * CARDIOLIPIN ANTIBODY IGG(Performed 03/10/2023) Performed for Raynaud's disease without gangrene * CARDIOLIPIN ANTIBODY IGM(Performed 03/10/2023) Performed for Raynaud's disease without gangrene * ERYTHROCYTE SEDIMENTATION RATE(Performed 03/10/2023) Performed for Livedo reticularis, Arthralgia of knee, unspecified laterality, Raynaud's disease without gangrene, Hypermobility arthralgia * C-REACTIVE PROTEIN(Performed 03/10/2023) Performed for Livedo reticularis, Arthralgia of knee, unspecified laterality, Raynaud's disease without gangrene, Hypermobility arthralgia * COMPREHENSIVE METABOLIC PANEL(Performed 03/10/2023) Performed for Livedo reticularis, Arthralgia of knee, unspecified laterality, Raynaud's disease without gangrene, Hypermobility arthralgia * CBC W AUTO DIFFERENTIAL(Performed 03/10/2023) Performed for Livedo reticularis, Arthralgia of knee, unspecified laterality, Raynaud's disease without gangrene, Hypermobility arthralgia * PM/SCL-100 ANTIBODY IGG(Performed 11/12/2022) * RNA POLYMERASE III ANTIBODY IGG(Performed 11/12/2022) * SCLERODERMA 70 (SCL) ANTIBODY(Performed 11/12/2022) * HLA TYPING B27(Performed 11/12/2022) * CHROMATIN ANTIBODY(Performed 11/12/2022) * QUANTIFERON TB-GOLD(Performed 11/12/2022) * TREVON BLOOD SCREEN W/REFLEX TITER(Performed 11/12/2022) * URINALYSIS MICROSCOPIC ONLY REFLEXED(Performed 11/12/2022) * URINALYSIS REFLEX MICROSCOPIC REFLEX CULTURE(Performed 11/12/2022) * ALDOLASE(Performed 11/12/2022) * SMOOTH MUSCLE ANTIBODY(Performed 11/12/2022) * CYCLIC CITRUL PEPTIDE ANTIBODY IGG/IGA (CCP)(Performed 11/12/2022) * CENTROMERE B ANTIBODIES(Performed 11/12/2022) * DNA ANTIBODY DOUBLE STRANDED(Performed 11/12/2022) * WINDOW/DISTRIBUTION CLERK ANTIBODY(Performed 11/12/2022) * SS-A/SS-B (SJOGREN'S) ANTIBODY PANEL(Performed 11/12/2022) * HEPATITIS B CORE ANTIBODY TOTAL(Performed 11/12/2022) * HEPATITIS B SURFACE ANTIGEN W RFLX CONFIRMATION(Performed 11/12/2022) * TSH REFLEX FREE T4(Performed 11/12/2022) * CKMB(Performed 11/12/2022) * INTERPRETATION REFLEXED(Performed 11/12/2022) * HEPATITIS C ANTIBODY W RFLX PCR(Performed 11/12/2022) * COMPREHENSIVE METABOLIC PANEL(Performed 11/12/2022) * C-REACTIVE PROTEIN(Performed 11/12/2022) * ERYTHROCYTE SEDIMENTATION RATE(Performed 11/12/2022) * RHEUMATOID FACTOR BLOOD QUANTITATIVE(Performed 11/12/2022) * COMPLEMENT C3 C4 PANEL(Performed 11/12/2022) * CBC W AUTO DIFFERENTIAL(Performed 11/12/2022) * CULTURE URINE(Performed 11/12/2022) * XR HIP LEFT 2VW OR MORE(Performed 11/11/2022) Performed for Polyarthralgia, Raynaud's disease without gangrene, Hypermobility arthralgia, Palpitations * XR KNEE LEFT 3VW(Performed 11/11/2022) Performed for Polyarthralgia, Raynaud's disease without gangrene, Hypermobility arthralgia, Palpitations * XR KNEE RIGHT 3VW(Performed 11/11/2022) Performed for Polyarthralgia, Raynaud's disease without gangrene, Hypermobility arthralgia, Palpitations * XR SI JOINTS 3VW OR MORE(Performed 11/11/2022) Performed for Polyarthralgia, Raynaud's disease without gangrene, Hypermobility arthralgia, Palpitations * XR HIP RIGHT 2VW OR MORE(Performed 11/11/2022) Performed for Polyarthralgia, Raynaud's disease without gangrene, Hypermobility arthralgia, Palpitations * VITAMIN B12(Performed 05/05/2022) Performed for Orthostatic hypotension * VITAMIN E(Performed 05/05/2022) Performed for Orthostatic hypotension * HEMOGLOBIN A1C(Performed 05/05/2022) Performed for Orthostatic hypotension * SKIN TEST PPD - POINT OF CARE(Performed 10/27/2019) Performed for Screening for tuberculosis * SKIN TEST PPD - POINT OF CARE(Performed 10/11/2018) Performed for Screening examination for pulmonary tuberculosis Results * MRI SACRUM SI JOINTS WWO CONT (04/17/2023 11:37 AM FIRE FIGHTING EQUIPMENT SPECIALIST) Anatomical Region Laterality Modality Pelvis Magnetic Resonan ce 04/17/2023 11:2 5 AM FIRE FIGHTING EQUIPMENT SPECIALIST Impressions 04/17/2023 11:52 AM FIRE FIGHTING EQUIPMENT SPECIALIST IMPRESSION: Normal evaluation of the bilateral sacroiliac joints. Report dictated by Juan Tse M.D. (commercial lending vice president). I, Christo Lopez MD have personally reviewed and interpreted this examination/study. > Interpreting Provider: Christo Lopez MD on 04/17/2023 11:52 AM Narrative 04/17/2023 11:52 AM FIRE FIGHTING EQUIPMENT SPECIALIST PROCEDURE: MRI SACRUM SI JOINTS WWO CONT DATE/TIME OF EXAM: 04/17/2023 11:37 AM CLINICAL INFORMATION: None relevant/not provided if blank. 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 COMPARISON: SI joint radiograph 11/11/2022. TECHNIQUE: MRI of the sacroiliac joints was performed utilizing multiple pulse sequences in multiple planes before and after intravenous gadolinium contrast administration. CONTRAST: 5 mL of Gadavist FINDINGS: There is no abnormal signal or enhancement in either sacroiliac joint. There is no bone marrow edema or abnormal bone marrow enhancement adjacent to either joint. No erosions are seen. There is no ankylosis. There is no pelvic fracture. The pubic symphysis is normal. The hips are normal without effusion, arthritis, fracture, or femoral head avascular necrosis. Iliac crests are normal without edema or enhancement. The visualized tendons are normal. Muscles are normal in bulk and signal intensity. The subcutaneous tissues are normal. Urinary bladder is normal. The uterus is normal. A 0.7 cm nabothian cyst is seen in the left side of the cervix. There is a small amount of free pelvic fluid. Procedure Note Christo Lopez MD - 04/17/2023 PROCEDURE: MRI SACRUM SI JOINTS WWO CONT DATE/TIME OF EXAM: 04/17/2023 11:37 AM CLINICAL INFORMATION: None relevant/not provided if blank. 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 COMPARISON: SI joint radiograph 11/11/2022. TECHNIQUE: MRI of the sacroiliac joints was performed utilizing multiple pulse sequences in multiple planes before and after intravenous gadolinium contrast administration. CONTRAST: 5 mL of Gadavist FINDINGS: There is no abnormal signal or enhancement in either sacroiliac joint. There is no bone marrow edema or abnormal bone marrow enhancementadjacent to either joint. No erosions are seen. There is no ankylosis. There is no pelvic fracture. The pubic symphysis is normal. The hips are normal without effusion, arthritis, fracture, or femoral head avascular necrosis. Iliac crests are normal without edema or enhancement. The visualized tendons are normal. Muscles are normal in bulk and signal intensity. The subcutaneous tissues are normal. Urinary bladder is normal. The uterus is normal. A 0.7 cm nabothian cystis seen in the left side of the cervix. There is a small amount of freepelvic fluid. IMPRESSION: Normal evaluation of the bilateral sacroiliac joints. Report dictated by Juan Tse M.D. (commercial lending vice president). I, Christo Lopez MD have personally reviewed and interpreted this examination/study. > Interpreting Provider: Christo Lopez MD on 04/17/2023 11:52 AM Saadia Londono MD MR ORDERABLES * CREATININE - POCT INTERFACED (04/17/2023 10:32 AM FIRE FIGHTING EQUIPMENT SPECIALIST) [facility] Creatinine POCT 0.74 0.30 - 1.30 mg/dL 04/17/2023 11:50 AM FIRE FIGHTING EQUIPMENT SPECIALIST [facility] eGFR >90 >90 mL/min/1.7 3 m2 04/17/2023 11:50 AM [facility] Blood BLOOD SPECIMEN / Unknown 04/17/2023 10:32 AM FIRE FIGHTING EQUIPMENT SPECIALIST 04/17/2023 11:50 AM FIRE FIGHTING EQUIPMENT SPECIALIST Saadia Londono MD LAB - POINT OF CARE ORDERABLES [address] [address], [facility] [phone] * LUPUS ANTICOAGULANT PANEL (03/10/2023 11:33 AM FIRE FIGHTING EQUIPMENT SPECIALIST) APTT 25.7 23.0 - 38.4 Seconds 03/10/2023 12:06 PM [facility] PT 12.9 12.1 - 14.8 Seconds 03/10/2023 12:06 PM [facility] INR 1.0 See Comment 03/10/2023 12:06 PM [facility] STACLOT-LA Buffer 42.0 Seconds 024 12:06 PM [facility] [place] Phospholipid 38.8 Seconds 03/10/2023 12:06 PM [facility] [place]LOT-[place] Delta 3.2 <8.0 Seconds 03/10/2023 12:06 PM [facility] Interpretation STACLOT-[place] Negative 03/10/2023 12:06 PM [facility] Comment:Up to 15-20% of naren ents with lupus anticoagulant associated with antiphospholipid antibody syndrome (APAS) will have negative STACLOT-LA results. For these patients we recommend additional testing to include the Dilute Noel Viper Venom Time (DRVVT) test. Immunoassay measurements of anti-cardiolipin and anti-beta-2 glycoprotein 1 are recommended if the DRVVT, and STACLOT-LA tests are negative and there is clinical suspicion of APAS. Blood BLOOD SPECIMEN / Unknown Lab Venipuncture / Unknown 03/10/2023 11:33 AM FIRE FIGHTING EQUIPMENT SPECIALIST 03/10/2023 11:47 AM FIRE FIGHTING EQUIPMENT SPECIALIST Saadia Londono MD LAB - HEMATOLO GY ORDERABLES [address] [place] [address], [facility] [phone] * CARDIOLIPIN ANTIBODY IGM (03/10/2023 11:33 AM FIRE FIGHTING EQUIPMENT SPECIALIST) Cardiolipin Antibody IgM <10 <=12 MPL 03/11/2023 8:41 PM FIRE FIGHTING EQUIPMENT SPECIALIST [facility] [employer] ([facility]) Comment: INTERPRETIVE INFORMATION: Anti-Cardiolipin IgM <=12 MPL: Negative 13-19 MPL: Indeterminate 20-80 MPL: Low to Moderately Positive 81 MPL or above: High Positive The persistent presence of IgG and/or IgM cardiolipin (CL) antibodies in moderate or high levels (greater than 40 GPL and/or greater than 40 MPL units) is a laboratory criterion for the diagnosis of antiphospholipid syndrome (APS). Persistence is defined as moderate or high levels of IgG and/or IgM CL antibodies detected in two or more specimens drawn at least 12 weeks apart (J Throm Haemost. 2006;4:295-306). Lower positive levels of IgG and/or IgM CL antibodies (above cutoff but less than 40 GPL and/or less than 40 MPL units) may occur in patients with the clinical symptoms of APS; therefore, the actual significance of these levels is undefined. Results should not be used alone for diagnosis and must be interpreted in light of APS-specific clinical manifestations and/or other criteria phospholipid antibody tests. Performed By: [facility] [address] [place] [address] Endoscopic Technician: Moisés Mcgill MD, PhD CLIA Number: [id number] Blood BLOOD SPECIMEN / Unknown Lab Venipuncture / Unknown 03/10/2023 11:33 AM FIRE FIGHTING EQUIPMENT SPECIALIST 03/10/2023 11:47 AM FIRE FIGHTING EQUIPMENT SPECIALIST Saadia Londono MD LAB - SEROLOGY ORDERABLES [facility] [employer]) [address] * CARDIOLIPIN ANTIBODY IGG (03/10/2023 11:33 AM FIRE FIGHTING EQUIPMENT SPECIALIST) Cardiolipin Antibody IgG <10 <=14 GPL 03/11/2023 8:41 PM FIRE FIGHTING EQUIPMENT SPECIALIST [facility] ([facility]) Comment: INTERPRETIVE INFORMATION: Anti-Cardiolipin IgG Ab <=14 GPL: Negative 15-19 GPL: Indeterminate 20-80 GPL: Low to Moderately Positive 81 GPL or above: High Positive The persistent presence of IgG and/or IgM cardiolipin (CL) antibodies in moderate or high levels (greater than 40 GPL and/or greater than 40 MPL units) is a laboratory criterion for the diagnosis of antiphospholipid syndrome (APS). Persistence is defined as moderate or high levels of IgG and/or IgM CL antibodies detected in two or more specimens drawn at least 12 weeks apart (J Throm Haemost. 2006;4:295-306). Lower positive levels of IgG and/or IgM CL antibodies (above cutoff but less than 40 GPL and/or less than 40 MPL units) may occur in patients with the clinical symptoms of APS; therefore, the actual significance of these levels is undefined. Results should not be used alone for diagnosis and must be interpreted in light of APS-specific clinical manifestations and/or other criteria phospholipid antibody tests. Performed By: [facility] [address] [place] [address] Endoscopic Technician: Moisés Mcgill MD, PhD CLIA Number: [id number] Blood BLOOD SPECIMEN / Unknown Lab Venipuncture / Unknown 03/10/2023 11:33 AM FIRE FIGHTING EQUIPMENT SPECIALIST 03/10/2023 11:47 AM FIRE FIGHTING EQUIPMENT SPECIALIST Saadia Londono MD LAB - SEROLOGY ORDERABLES [facility] [employer]) [address] [place] [address] * C-REACTIVE PROTEIN (03/10/2023 11:33 AM FIRE FIGHTING EQUIPMENT SPECIALIST) Only the most recent of2 resultswithin the time period is included. C-Reactive Protein <0.5 <=0.5 mg/dL 03/10/2023 12:22 PM FIRE FIGHTING EQUIPMENT SPECIALIST [facility] Blood BLOOD SPECIMEN / Unknown Lab Venipuncture / Unknown 03/10/2023 11:33 AM FIRE FIGHTING EQUIPMENT SPECIALIST 03/10/2023 11:48 AM FIRE FIGHTING EQUIPMENT SPECIALIST Saadia Londono MD LAB - CHEMISTR Y ORDERABLES Performing Organization Address City/[facility]/ZIP Co de Phone Number [address] [address], [facility] [phone] * BETA-2 GLYCOPROTEIN 1 ANTIBODY IGA (03/10/2023 11:33 AM FIRE FIGHTING EQUIPMENT SPECIALIST) Beta-2 Glycoprotein Antibody IgA <10 <=20 IDALMIS 03/11/2023 11:41 PM FIRE FIGHTING EQUIPMENT SPECIALIST [facility] ([facility]) Comment: Performed By: [facility] [employer] [address] [place] [address] Endoscopic Technician: Moisés Mcgill MD, PhD CLIA Number: [id number] Blood BLOOD SPECIMEN / Unknown Lab Venipuncture / Unknown 03/10/2023 11:33 AM FIRE FIGHTING EQUIPMENT SPECIALIST 03/10/2023 11:47 AM FIRE FIGHTING EQUIPMENT SPECIALIST Saadia Londono MD LAB - SEROLOGY ORDERABLES Performing Organization Address City/[facility] Co de Phone Number [facility]) [address] * BETA-2 GLYCOPROTEIN 1 ANTIBODY IGG/IGM PANEL (03/10/2023 11:33 AM FIRE FIGHTING EQUIPMENT SPECIALIST) Beta-2 Glycoprotein Antibody IgG <10 <=20 SGU 03/11/2023 11:40 PM FIRE FIGHTING EQUIPMENT SPECIALIST [facility] ([facility]) Beta-2 Glycoprotein Antibody IgM <10 <=20 SMU 03/11/2023 11:40 PM FIRE FIGHTING EQUIPMENT SPECIALIST [facility]) Comment: INTERPRETIVE INFORMATION: [id number] I, IgG and IgM Antibody The persistent presence of IgG and/or IgM beta 2 glycoprotein I (B2GPI) antibodies is a laboratory criterion for the diagnosis of antiphospholipid syndrome (APS). Persistence is defined as moderate or high levels of IgG and/or IgM B2GPI antibodies detected in two or more specimens drawn at least 12 weeks apart (J Throm Haemost. 2006;4:295-306). B2GPI results greater than 20 SGU (IgG) and/or SMU (IgM) are considered positive based on the cutoff values established for this test. International reference materials and consensus units for anti-B2GPI antibodies have not been established (Clin Asif Acta. 2012;413(1-2):358-60; Arthritis Rheum. 2012;64(1):1-10.); results can be variable between different commercial immunoassays and cannot be compared. Strong clinical correlation is recommended for a diagnosis of APS. Low positive IgG and IgM B2GPI antibody levels should be interpreted in light of APS-specific clinical manifestations and/or other criteria phospholipid antibody tests. Performed By: [place] [address] Endoscopic Technician: Moisés Mcgill MD, PhD CLIA Number: [id number] Blood BLOOD SPECIMEN / Unknown Lab Venipuncture / Unknown 03/10/2023 11:33 AM FIRE FIGHTING EQUIPMENT SPECIALIST 03/10/2023 11:47 AM FIRE FIGHTING EQUIPMENT SPECIALIST Saadia Londono MD LAB - CHEMISTR Y ORDERABLES Performing Organization Address [facility] Co de Phone Number [facility] ([facility]) [address] [place] [address] * ERYTHROCYTE SEDIMENTATION RATE (03/10/2023 11:33 AM FIRE FIGHTING EQUIPMENT SPECIALIST) Only the most recent of2 resultswithin the time period is included. Pathologist [facility] Erythrocyte Sedimentation Rate Westergren 17 0 - 20 MM/HR 03/10/2023 12:22 PM FIRE FIGHTING EQUIPMENT SPECIALIST [facility] Blood BLOOD SPECIMEN / Unknown Lab Venipuncture / Unknown 03/10/2023 11:33 AM FIRE FIGHTING EQUIPMENT SPECIALIST 03/10/2023 11:48 AM FIRE FIGHTING EQUIPMENT SPECIALIST Saadia Londono MD LAB - HEMATOLO GY ORDERABLES [facility] [address] [place] [address], [facility] [phone] * CBC WITH DIFFERENTIAL (03/10/2023 11:33 AM FIRE FIGHTING EQUIPMENT SPECIALIST) Only the most recent of2 resultswithin the time period is included. WBC 5.5 4.0 - 10.7 x10E9/L 03/10/2023 12:01 PM FIRE FIGHTING EQUIPMENT SPECIALIST [facility] RBC Count 4.72 3.90 - 5.20 x10E12/L 03/10/2023 12:01 PM [facility] Hemoglobin 14.6 11.9 - 15.8 g/dL 03/10/2023 12:01 PM [facility] Hematocrit 43.1 34.8 - 46.1 % 03/10/2023 12:01 PM [facility] MCV 91.3 80.0 - 98.0 fL 03/10/2023 12:01 PM [facility] MCH 30.9 26.7 - 33.6 pg 03/10/2023 12:01 PM [facility] MCHC 33.9 31.7 - 36.3 g/dL 03/10/2023 12:01 PM [facility] RDW-CV 12.1 11.3 - 14.8 % 03/10/2023 12:01 PM [facility] Platelet Count 241 150 - 420 x10E9/L 03/10/2023 12:01 PM [facility] MPV 10.4 7.8 - 11.4 fL 03/10/2023 12:01 PM [facility] Neutrophil % 64.2 41.0 - 74.0 % 03/10/2023 12:01 PM [facility] Lymphocyte % 26.3 17.0 - 47.0 % 03/10/2023 12:01 PM [facility] Monocyte % 7.5 3.0 - 11.0 % 03/10/2023 12:01 PM [facility] Eosinophil % 0.5 0.0 - 7.0 % 03/10/2023 12:01 PM [facility] Basophil % 1.1 0.0 - 1.6 % 03/10/2023 12:01 PM [facility] Immature Granulocytes % 0.4 0.0 - 1.0 % 03/10/2023 12:01 PM [facility] Neutrophil Absolute 3.52 1.60 - 7.50 x10E9/L 03/10/2023 12:01 PM [facility] Lymphocyte Absolute 1.44 1.00 - 4.40 x10E9/L 03/10/2023 12:01 PM [facility] Monocyte Absolute 0.41 0.15 - 1.00 x10E9/L 03/10/2023 12:01 PM [facility] Eosinophil Absolute 0.03 0.00 - 0.60 x10E9/L 03/10/2023 12:01 PM [facility] Basophil Absolute 0.06 0.00 - 0.13 x10E9/L 03/10/2023 12:01 PM [facility] Blood BLOOD SPECIMEN / Unknown Lab Venipuncture / Unknown 03/10/2023 11:33 AM FIRE FIGHTING EQUIPMENT SPECIALIST 03/10/2023 11:48 AM FIRE FIGHTING EQUIPMENT SPECIALIST Saadia Londono MD LAB - HEMATOLO GY ORDERABLES [address] [address], [facility] [phone] * (ABNORMAL) COMPREHENSIVE METABOLIC PANEL (03/10/2023 11:33 AM FIRE FIGHTING EQUIPMENT SPECIALIST) Only the most recent of2 resultswithin the time period is included. BUN 12 7 - 26 mg/dL 03/10/2023 12:18 PM [facility] Creatinine 0.73 0.56 - 0.96 mg/dL 03/10/2023 12:18 PM [facility] Sodium 142 136 - 145 mmol/L 03/10/2023 12:18 PM [facility] Potassium 4.0 3.5 - 4.5 mmol/L 03/10/2023 12:18 PM [facility] Chloride 108(H) 98 - 107 mmol/L 03/10/2023 12:18 PM [facility] CO2 26 22 - 29 mmol/L 03/10/2023 12:18 PM [facility] Glucose 88 70 - 115 mg/dL 03/10/2023 12:18 PM [facility] Calcium 9.7 8.4 - 10.2 mg/dL 03/10/2023 12:18 PM [facility] Protein Total 8.2 6.0 - 8.3 g/dL 03/10/2023 12:18 PM [facility] Albumin 4.5 3.4 - 5.0 g/dL 03/10/2023 12:18 PM [facility] Bilirubin Total 0.7 0.2 - 1.2 mg/dL 03/10/2023 12:18 PM [facility] Alkaline Phosphatase 55 40 - 150 U/L 03/10/2023 12:18 PM [facility] ALT 14 5 - 55 U/L 03/10/2023 12:18 PM [facility] AST 18 5 - 34 U/L 03/10/2023 12:18 PM [facility] Anion Gap 8 6 - 16 03/10/2023 12:18 PM [facility] BUN/Creatinine Ratio 16 7 - 23 03/10/2023 12:18 PM [facility] Osmolality Calculated 293 275 - 295 mOsm/kg 03/10/2023 12:18 PM [facility] Albumin/Globulin Ratio 1.2 1.1 - 2.3 03/10/2023 12:18 PM [facility] eGFR by CKD-EPI >90 >=90 mL/min/1.7 3 m2 03/10/2023 12:18 PM [facility] Blood BLOOD SPECIMEN / Unknown Lab Venipuncture / Unknown 03/10/2023 11:33 AM [employer] 03/10/2023 11:48 AM [facility] Saadia Londono MD LAB - CHEMISTR Y ORDERABLES [address] [address], [facility] [phone] * INTERPRETATION REFLEXED (11/12/2022 2:46 PM CDT) Interpretation [facility] INSURANCE BILL Comment: Not infected with HCV unless early or acute infection is suspected (which may be delayed in an immunocompromised individual), or other evidence exists to indicate HCV infection. 11/12/2022 2:46 PM CDT 11/12/2022 Narrative Resulting Agency Comment Lab Testing performed at: [address] [id number] Saadia Londono MD LAB - SEROLOGY ORDERABLES [facility] INSURANCE BILL [address] [place] [address] * HEPATITIS C ANTIBODY W RFLX PCR (11/12/2022 2:46 PM CDT) Hepatitis C Antibody Non Reactive Non Reactive [facility] INSURANCE BILL 11/12/2022 2:46 PM CDT 11/12/2022 Narrative Resulting Agency Comment [facility]: [facility] [address] [facility] [phone] Saadia Londono MD LAB - CHEMISTR Y ORDERABLES [facility] INSURANCE BILL [address] [place] [address] * URINALYSIS MICROSCOPIC ONLY REFLEXED (11/12/2022 2:46 PM CDT) WBC UA None seen 0 - 5 /hpf [facility] INSURANCE BILL RBC UA 0-2 0 - 2 /hpf [facility] INSURANCE BILL Epithelial Cells (non renal) 0-10 0 - 10 /hpf [facility] INSURANCE BILL Epithelial Cells (renal) NOT AVAILABLE [facility] INSURANCE BILL Comment:Result cannot be obt ained for this observation. Casts ua None seen None seen /lpf [facility] INSURANCE BILL Casts UA NOT AVAILABLE [facility] INSURANCE BILL Comment:Result cannot be obt ained for this observation. Crystals UA NOT AVAILABLE [facility] INSURANCE BILL Comment:Result cannot be obt ained for this observation. Crystals UA NOT AVAILABLE [facility] INSURANCE BILL Comment:Result cannot be obt ained for this observation. Mucus UA NOT AVAILABLE [facility] INSURANCE BILL Comment:Result cannot be obt ained for this observation. Bacteria UA Few None seen/Few [facility] INSURANCE BILL Yeast UA NOT AVAILABLE [facility] INSURANCE BILL Comment:Result cannot be obt ained for this observation. Trichomonas UA NOT AVAILABLE [facility] INSURANCE BILL Comment:Result cannot be obt ained for this observation. Comment Urine NOT AVAILABLE [facility] INSURANCE BILL Comment:Result cannot be obt ained for this observation. 11/12/2022 2:46 PM CDT 11/12/2022 Narrative Resulting Agency Comment Lab Testing performed at: [facility] [address] [facility] [id number] Saadia Londono MD LAB - URINALYS IS ORDERABLES Performing Organization Address [facility] Co de Phone Number [facility] INSURANCE BILL [address] [place] [address] * CENTROMERE B ANTIBODIES (11/12/2022 2:46 PM CDT) Centromere B Antibody <0.2 0.0 - 0.9 AI [facility] INSURANCE BILL 11/12/2022 2:46 PM CDT 11/12/2022 Narrative Resulting Agency Comment Lab Testing performed at: [facility] [address] [facility] [phone] Saadia Londono MD LAB - SEROLOGY ORDERABLES Performing Organization Address [facility] Co de Phone Number [facility] INSURANCE BILL [address] [place] [address] * CHROMATIN ANTIBODY (11/12/2022 2:46 PM CDT) SAHLY IgG <20 <20 Units [facility] INSURANCE BILL Comment: Negative: <20 Weak Positive: 20 - 39 Moderate Positive: 40 - 80 Strong Positive: >80 11/12/2022 2:46 PM CDT 11/12/2022 Narrative Resulting Agency Comment Lab Testing performed at: [facility] [address] [place] [id number] Saadia Londono MD LAB - SEROLOGY ORDERABLES Performing Organization Address City/[facility]/ZIP Co de Phone Number [facility] INSURANCE BILL [address] [place] [address] * CYCLIC CITRUL PEPTIDE ANTIBODY IGG/IGA (CCP) (11/12/2022 2:46 PM CDT) CCP Antibodies IgG/IgA 4 0 - 19 units [facility] INSURANCE BILL Comment: Negative <20 Weak positive 20 - 39 Moderate positive 40 - 59 Strong positive >59 11/12/2022 2:46 PM CDT 11/12/2022 Narrative Resulting Agency Comment Lab Testing performed at: [facility] [address] [facility] [id number] Saadia Londono MD LAB - SEROLOGY ORDERABLES Performing Organization Address [facility] Co de Phone Number [facility] INSURANCE BILL [address] [place] [address] * (ABNORMAL) URINALYSIS REFLEX MICROSCOPIC REFLEX CULTURE (11/12/2022 2:46 PM CDT) Microscopic Examination Urine NOT AVAILABLE [facility] INSURANCE BILL Comment:Result cannot be obt ained for this observation. Urinalysis Reflex [facility] INSURANCE BILL Comment:This specimen has re flexed to a Urine Culture. Specific [place] UA 1.014 1.005 - 1.030 [facility] INSURANCE BILL pH UA 7.0 5.0 - 7.5 [facility] INSURANCE BILL Color UA Yellow Yellow [facility] INSURANCE BILL Appearance Clear Clear [facility] INSURANCE BILL Leukocyte UA Trace(A) Negative [facility] INSURANCE BILL Protein UA Negative Negative/Tr prakash [facility] INSURANCE BILL Glucose UA Negative Negative [facility] INSURANCE BILL Ketone UA Negative Negative [facility] INSURANCE BILL Occult Blood Urine Negative Negative [facility] INSURANCE BILL Bilirubin UA Negative Negative [facility] INSURANCE BILL Urobilinogen 0.2 0.2 - 1.0 mg/dL [facility] INSURANCE BILL Nitrite UA Negative Negative [facility] INSURANCE BILL Microscopic Examination Urine See below: [facility] INSURANCE BILL Comment:Microscopic was grisel cated and was performed. 11/12/2022 2:46 PM CDT 11/12/2022 Narrative Resulting Agency Comment Lab Testing performed at: [facility] [address] [facility] [id number] Saadia Londono MD LAB - URINALYS IS ORDERABLES Performing Organization Address City/[facility]/ZIP Co de Phone Number [facility] INSURANCE BILL [address] [place] [address] * RNA POLYMERASE III ANTIBODY IGG (11/12/2022 2:46 PM CDT) RNA Polymerase 3 Antibody IgG <20 <20 Units [facility] INSURANCE BILL Comment: Negative: <20 Weak Positive: 20 - 39 Moderate Positive: 40 - 80 Strong Positive: >80 11/12/2022 2:46 PM CDT 11/12/2022 Narrative [facility] INSURANCE BILL - 11/22/2022 3:08 PM CDT Test(s) 824107-Kkkt-DY/Scl-100 Ab (RDL) was developed and its performance characteristics determined by [facility]. It has not been cleared or approved by the Food and Drug Administration. Resulting Agency Comment Lab Testing performed at: [facility] [address] [place] [address] [id number] Saadia Londono MD LAB - SEROLOGY ORDERABLES Performing Organization Address [facility] Co de Phone Number [facility] INSURANCE BILL [address] [place] [address] * TSH REFLEX FREE T4 (11/12/2022 2:46 PM CDT) TSH 0.917 0.450 - 4.500 uIU/mL [facility] INSURANCE BILL 11/12/2022 2:46 PM CDT 11/12/2022 Narrative Resulting Agency Comment Lab Testing performed at: [facility] [address] [place] [id number] Saadia Londono MD LAB - CHEMISTR Y ORDERABLES Performing Organization Address [facility] Co de Phone Number [facility] [address] [place] [address] * WINDOW/DISTRIBUTION CLERK ANTIBODY (11/12/2022 2:46 PM CDT) WINDOW/DISTRIBUTION CLERK Antibody 0.2 0.0 - 0.9 AI [facility] 11/12/2022 2:46 PM CDT 11/12/2022 Narrative Resulting Agency Comment Lab Testing performed at: [facility] [address] [facility] [id number] Saadia Londono MD LAB - CHEMISTR Y ORDERABLES [facility] INSURANCE BILL [address] [place] [address] * RHEUMATOID FACTOR BLOOD QUANTITATIVE (11/12/2022 2:46 PM CDT) Rheumatoid Factor <10.0 <14.0 IU/mL [facility] INSURANCE BILL 11/12/2022 2:46 PM CDT 11/12/2022 Narrative Resulting Agency Comment Lab Testing performed at: [facility] [address] [facility] [phone] Saadia Londono MD LAB - CHEMISTR Y ORDERABLES Performing Organization Address [facility] de Phone Number [facility] [address] [place] [address] * TREVON BLOOD SCREEN W/REFLEX TITER (11/12/2022 2:46 PM CDT) TREVON Negative [facility] INSURANCE BILL Comment: Negative <1:80 Borderline 1:80 Positive >1:80 ICAP nomenclature: AC-0 For more information about Hep-2 cell patterns use ANApatterns.org, the official website for the International Consensus on Antinuclear Antibody (TREVON) Patterns (ICAP). 11/12/2022 2:46 PM CDT 11/12/2022 Narrative Resulting Agency Comment Lab Testing performed at: [facility] [address] [facility] [phone] Saadia Londono MD LAB - CHEMISTR Y ORDERABLES Performing Organization Address [facility]/ZIP Co de Phone Number [facility] INSURANCE BILL [address] [place] [address] * SS-A/SS-B (SJOGREN'S) ANTIBODY PANEL (11/12/2022 2:46 PM CDT) Sjogren's Antibodies (SSA) <0.2 0.0 - 0.9 AI [facility] INSURANCE BILL Sjogren's Antibodies (SSB) <0.2 0.0 - 0.9 AI [facility] INSURANCE BILL 11/12/2022 2:46 PM CDT 11/12/2022 Narrative Resulting Agency Comment Lab Testing performed at: [facility] [address] [facility] [id number] Saadia Londono MD LAB - CHEMISTR Y ORDERABLES Performing Organization Address [facility] Co de Phone Number [facility] INSURANCE BILL [address] [place] [address] * PM/SCL-100 ANTIBODY IGG (11/12/2022 2:46 PM CDT) Anti PM/Scl Antibody EIA <20 <20 Units [facility] INSURANCE BILL Comment: Negative: <20 Weak Positive: 20 - 39 Moderate Positive: 40 - 80 Strong Positive: >80 11/12/2022 2:46 PM CDT 11/12/2022 Narrative [facility] INSURANCE BILL - 11/22/2022 3:08 PM CDT Test(s) 585329-Ctcy-UW/Scl-100 Ab (RDL) was developed and its performance characteristics determined by [employer]. It has not been cleared or approved by the Food and Drug Administration. Resulting Agency Comment Lab Testing performed at: [facility] [address] [place] [address] [id number] Saadia Londono MD LAB - SEROLOGY ORDERABLES Performing Organization Address [facility] Co de Phone Number [facility] INSURANCE BILL [address] [place] [address] * HLA TYPING B27 (11/12/2022 2:46 PM CDT) HLA-B27 Positive [facility] Comment: HLA-B*27 Positive This patient is positive for HLA-B*27. This procedure rules out the B*27:06 and 27:09 alleles, which the literature suggests are not associated with spondyloarthropathies. B27 allele interpretation for all loci based on IMGT/HLA database version 3.44 This test was developed and its performance characteristics determined by [employer]. It has not been cleared or approved by the Food and Drug Administration. [facility] CLIA ID Number [id number] THis test was performed using Polymerase Chain Reaction (PCR) and Sequence Specific Oligonucleotide Probes (SSOP) technique. Sequence Based Typing (SBT) may be used as a supplemental method when necessary. If you have questions, please call [facility] customer service at or email at [email or web address] 11/12/2022 2:46 PM CDT 11/12/2022 Narrative Resulting Agency Comment Lab Testing performed at: [facility] [address] [facility] [id number] Saadia Londono MD LAB - CHEMISTR Y ORDERABLES Performing Organization Address [facility] Co de Phone Number [facility] INSURANCE BILL [address] [place] [address] * SCLERODERMA 70 (SCL) ANTIBODY (11/12/2022 2:46 PM CDT) SCL-70 Antibody <20 <20 Units [facility] INSURANCE BILL 11/12/2022 2:46 PM CDT 11/12/2022 Narrative [facility] INSURANCE BILL - 11/22/2022 7:10 AM CDT Test(s) [id number]-Bwxz-Buq-33 Ab (RDL) was developed and its performance characteristics determined by [facility]. It has not been cleared or approved by the Food and Drug Administration. Resulting Agency Comment Lab Testing performed at: [facility] [address] [place] [address] [id number] Saadai Londono MD LAB - CHEMISTR Y ORDERABLES Performing Organization Address [facility] Co de Phone Number [facility] INSURANCE BILL [address] [place] [address] * DNA ANTIBODY DOUBLE STRANDED (11/12/2022 2:46 PM CDT) Anti-dsDNA Quantitative 2 0 - 9 IU/mL [facility] INSURANCE BILL Comment: Negative <5 Equivocal 5 - 9 Positive >9 11/12/2022 2:46 PM CDT 11/12/2022 Narrative Resulting Agency Comment Lab Testing performed at: [facility] [address] [facility] [id number] Saadia Londono MD LAB - HEMATOLO GY ORDERABLES Performing Organization Address [facility]/ZIP Co de Phone Number [facility] INSURANCE BILL [address] [place] [address] * ALDOLASE (11/12/2022 2:46 PM CDT) Aldolase 3.8 3.3 - 10.3 U/L [facility] INSURANCE BILL 11/12/2022 2:46 PM CDT 11/12/2022 Narrative Resulting Agency Comment Lab Testing performed at: [employer] [address] [facility] [id number] Saadia Londono MD LAB - CHEMISTR Y ORDERABLES Performing Organization Address [facility] Co de Phone Number [facility] INSURANCE BILL [address] [place] [address] * QUANTIFERON TB-GOLD (11/12/2022 2:46 PM CDT) Pathologist [facility] QuantiFERON Incubation Incubation performed. [facility] INSURANCE BILL QuantiFERON Criteria [facility] INSURANCE BILL Comment: QuantiFERON-TB Gold Plus is a qualitative indirect test for M tuberculosis infection (including disease) and is intended for use in conjunction with risk assessment, radiography, and other medical and diagnostic evaluations. The QuantiFERON-TB Gold Plus result is determined by subtracting the Nil value from either TB antigen (Ag) value. The Mitogen tube serves as a control for the test. QuantiFERON TB1 Ag Value 0.02 IU/mL [facility] INSURANCE BILL QuantiFERON TB2 Ag Value 0.00 IU/mL [facility] INSURANCE BILL QuantiFERON Nil Value 0.00 IU/mL [facility] INSURANCE BILL QuantiFERON Mitogen Value 6.21 IU/mL [facility] INSURANCE BILL QuantiFERON-TB Gold Plus Negative Negative [facility] INSURANCE BILL Comment: No response to M tuberculosis antigens detected. Infection with M tuberculosis is unlikely, but high risk individuals should be considered for additional testing (ATS/IDSA/CDC Clinical Practice Guidelines, 2017). The reference range is an Antigen minus Nil result of <0.35 IU/mL. Chemiluminescence immunoassay methodology 11/12/2022 2:46 PM CDT 11/12/2022 Narrative Resulting Agency Comment Lab Testing performed at: [facility] [address] [facility] [id number] Saadia Londono MD LAB - CHEMISTR Y ORDERABLES Performing Organization Address [facility]/ZIP Co de Phone Number [facility] INSURANCE BILL [address] [place] [address] * CULTURE URINE (11/12/2022 2:46 PM CDT) Urine Culture Routine Final report [facility] INSURANCE BILL Result 1 [facility] INSURANCE BILL Comment: Mixed urogenital vidhi 10,000-25,000 colony forming units per mL 11/12/2022 2:46 PM CDT 11/12/2022 Narrative Resulting Agency Comment Lab Testing performed at: [address] [id number] Saadia Londono MD LAB - MICROBIO LOGY ORDERABLES Performing Organization Address [facility] Co de Phone Number [facility] INSURANCE BILL [address] [place] [address] * SMOOTH MUSCLE ANTIBODY (11/12/2022 2:46 PM CDT) Actin (Smooth Muscle) Antibody 8 0 - 19 Units [facility] INSURANCE BILL Comment: Negative 0 - 19 Weak positive 20 - 30 Moderate to strong positive >30 . Actin Antibodies are found in 52-85% of patients with autoimmune hepatitis or chronic active hepatitis and in 22% of patients with primary biliary cirrhosis. 11/12/2022 2:46 PM CDT 11/12/2022 Narrative Resulting Agency Comment Lab Testing performed at: [facility] [address] [facility] [id number] Saadia Londono MD LAB - SEROLOGY ORDERABLES Performing Organization Address [facility]/ZIP Co de Phone Number [facility] INSURANCE BILL [address] [place] [address] * HEPATITIS B CORE ANTIBODY TOTAL (11/12/2022 2:46 PM CDT) Hepatitis B Core Virus Antibody Total Negative Negative [facility] INSURANCE BILL 11/12/2022 2:46 PM CDT 11/12/2022 Narrative Resulting Agency Comment Lab Testing performed at: [facility] [address] [place] [address] [id number] Saadia Londono MD LAB - CHEMISTR Y ORDERABLES [facility] INSURANCE BILL [address] [place] [address] * HEPATITIS B SURFACE ANTIGEN W RFLX CONFIRMATION (11/12/2022 2:46 PM CDT) Hepatitis B Virus Surface Antigen Negative Negative [facility] INSURANCE BILL 11/12/2022 2:46 PM CDT 11/12/2022 Narrative Resulting Agency Comment Lab Testing performed at: [facility] [address] [facility] [id number] Saadia Londono MD LAB - CHEMISTR Y ORDERABLES Performing Organization Address [facility] Co de Phone Number [facility] INSURANCE BILL [address] [place] [address] * CKMB (11/12/2022 2:46 PM CDT) Pathologist [facility] CK-MB <1.0 0.0 - 5.3 ng/mL [facility] INSURANCE BILL 11/12/2022 2:46 PM CDT 11/12/2022 Narrative Resulting Agency Comment Lab Testing performed at: [facility] [address] [facility] [phone] Saadia Londono MD LAB - CHEMISTR Y ORDERABLES Performing Organization Address [facility] Co de Phone Number [facility] [address] [place] [address] * COMPLEMENT C3 C4 PANEL (11/12/2022 2:46 PM CDT) Complement C3 135 82 - 167 mg/dL [facility] INSURANCE BILL Complement C4 22 12 - 38 mg/dL [facility] INSURANCE BILL 11/12/2022 2:46 PM CDT 11/12/2022 Narrative Resulting Agency Comment Lab Testing performed at: [facility] [address] [facility] [id number] Saadia Londono MD LAB - CHEMISTR Y ORDERABLES [facility] INSURANCE BILL [address] [place] [address] * XR KNEE RIGHT 3VW (11/11/2022 10:06 AM CDT) Anatomical Region Laterality Modality Lower Extremity Radiographic Estephania ging 11/11/2022 10:1 0 AM CDT Impressions 11/11/2022 10:12 AM CDT IMPRESSION: The above studies are normal. > Interpreting Provider: Christo Lopez MD on 11/11/2022 10:12 AM Narrative 11/11/2022 10:12 AM CDT PROCEDURE: XR HIP RIGHT 2VW OR MORE, XR HIP LEFT 2VW OR MORE, XR KNEE LEFT 3VW, XR KNEE RIGHT 3VW, XR SI JOINTS 3VW OR MORE DATE/TIME OF EXAM: 11/11/2022 10:06 AM CLINICAL INFORMATION: None relevant/not provided if blank. 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 FINDINGS: Right hip: No fracture or dislocation is present. The joint spaces are normal. No erosions are seen. Bone density is normal. The soft tissues are normal. Left hip: No fracture or dislocation is present. The joint spaces are normal. No erosions are seen. Bone density is normal. The soft tissues are normal. Sacroiliac joints: There is no erosion, widening, sclerosis, narrowing, or ankylosis of either sacroiliac joint. There is no fracture. The hip joint spaces are normal. Right knee: No acute fracture or dislocation is present. The joint spaces are normal. No erosions are seen. There is no effusion. Left knee: No acute fracture or dislocation is present. The joint spaces are normal. No erosions are seen. There is no effusion. Procedure Note Christo Lopez MD - 11/11/2022 PROCEDURE: XR HIP RIGHT 2VW OR MORE, XR HIP LEFT 2VW OR MORE, XR KNEELEFT 3VW, XR KNEE RIGHT 3VW, XR SI JOINTS 3VW OR MORE DATE/TIME OF EXAM: 11/11/2022 10:06 AM CLINICAL INFORMATION: None relevant/not provided if blank. 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 FINDINGS: Right hip: No fracture or dislocation is present. The joint spaces are normal. No erosions are seen. Bone density is normal. The soft tissues are normal. Left hip: No fracture or dislocation is present. The joint spaces are normal. No erosions are seen. Bone density is normal. The soft tissues are normal. Sacroiliac joints: There is no erosion, widening, sclerosis, narrowing, or ankylosis ofeither sacroiliac joint. There is no fracture. The hip joint spaces are normal. Right knee: No acute fracture or dislocation is present. The jointspaces are normal. No erosions are seen. There is no effusion. Left knee: No acute fracture or dislocation is present. The joint spaces arenormal. No erosions are seen. There is no effusion. IMPRESSION: The above studies are normal. > Interpreting Provider: Christo Lopez MD on 11/11/2022 10:12 AM Saadia Londono MD DIAGNOSTIC ESTEPHANIA GING ORDERABLES * XR KNEE LEFT 3VW (11/11/2022 10:06 AM CDT) Anatomical Region Laterality Modality Lower Extremity Radiographic Estephania ging 11/11/2022 10:1 0 AM CDT Impressions 11/11/2022 10:12 AM CDT IMPRESSION: The above studies are normal. > Interpreting Provider: Christo Lopez MD on 11/11/2022 10:12 AM Narrative 11/11/2022 10:12 AM CDT PROCEDURE: XR HIP RIGHT 2VW OR MORE, XR HIP LEFT 2VW OR MORE, XR KNEE LEFT 3VW, XR KNEE RIGHT 3VW, XR SI JOINTS 3VW OR MORE DATE/TIME OF EXAM: 11/11/2022 10:06 AM CLINICAL INFORMATION: None relevant/not provided if blank. 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 FINDINGS: Right hip: No fracture or dislocation is present. The joint spaces are normal. No erosions are seen. Bone density is normal. The soft tissues are normal. Left hip: No fracture or dislocation is present. The joint spaces are normal. No erosions are seen. Bone density is normal. The soft tissues are normal. Sacroiliac joints: There is no erosion, widening, sclerosis, narrowing, or ankylosis of either sacroiliac joint. There is no fracture. The hip joint spaces are normal. Right knee: No acute fracture or dislocation is present. The joint spaces are normal. No erosions are seen. There is no effusion. Left knee: No acute fracture or dislocation is present. The joint spaces are normal. No erosions are seen. There is no effusion. Procedure Note Christo Lopez MD - 11/11/2022 PROCEDURE: XR HIP RIGHT 2VW OR MORE, XR HIP LEFT 2VW OR MORE, XR KNEELEFT 3VW, XR KNEE RIGHT 3VW, XR SI JOINTS 3VW OR MORE DATE/TIME OF EXAM: 11/11/2022 10:06 AM CLINICAL INFORMATION: None relevant/not provided if blank. 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 FINDINGS: Right hip: No fracture or dislocation is present. The joint spaces are normal. No erosions are seen. Bone density is normal. The soft tissues are normal. Left hip: No fracture or dislocation is present. The joint spaces are normal. No erosions are seen. Bone density is normal. The soft tissues are normal. Sacroiliac joints: There is no erosion, widening, sclerosis, narrowing, or ankylosis ofeither sacroiliac joint. There is no fracture. The hip joint spaces are normal. Right knee: No acute fracture or dislocation is present. The jointspaces are normal. No erosions are seen. There is no effusion. Left knee: No acute fracture or dislocation is present. The joint spaces arenormal. No erosions are seen. There is no effusion. IMPRESSION: The above studies are normal. > Interpreting Provider: Christo Lopez MD on 11/11/2022 10:12 AM Saadia Londono MD DIAGNOSTIC ESTEPHANIA GING ORDERABLES * XR HIP RIGHT 2VW OR MORE (11/11/2022 10:06 AM CDT) Anatomical Region Laterality Modality Pelvis, Lower Extremity Radiogra phic Imaging 11/11/2022 10:1 0 AM CDT Impressions 11/11/2022 10:12 AM CDT IMPRESSION: The above studies are normal. > Interpreting Provider: Christo Lopez MD on 11/11/2022 10:12 AM Narrative 11/11/2022 10:12 AM CDT PROCEDURE: XR HIP RIGHT 2VW OR MORE, XR HIP LEFT 2VW OR MORE, XR KNEE LEFT 3VW, XR KNEE RIGHT 3VW, XR SI JOINTS 3VW OR MORE DATE/TIME OF EXAM: 11/11/2022 10:06 AM CLINICAL INFORMATION: None relevant/not provided if blank. 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 FINDINGS: Right hip: No fracture or dislocation is present. The joint spaces are normal. No erosions are seen. Bone density is normal. The soft tissues are normal. Left hip: No fracture or dislocation is present. The joint spaces are normal. No erosions are seen. Bone density is normal. The soft tissues are normal. Sacroiliac joints: There is no erosion, widening, sclerosis, narrowing, or ankylosis of either sacroiliac joint. There is no fracture. The hip joint spaces are normal. Right knee: No acute fracture or dislocation is present. The joint spaces are normal. No erosions are seen. There is no effusion. Left knee: No acute fracture or dislocation is present. The joint spaces are normal. No erosions are seen. There is no effusion. Procedure Note Christo Lopez MD - 11/11/2022 PROCEDURE: XR HIP RIGHT 2VW OR MORE, XR HIP LEFT 2VW OR MORE, XR KNEELEFT 3VW, XR KNEE RIGHT 3VW, XR SI JOINTS 3VW OR MORE DATE/TIME OF EXAM: 11/11/2022 10:06 AM CLINICAL INFORMATION: None relevant/not provided if blank. 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 FINDINGS: Right hip: No fracture or dislocation is present. The joint spaces are normal. No erosions are seen. Bone density is normal. The soft tissues are normal. Left hip: No fracture or dislocation is present. The joint spaces are normal. No erosions are seen. Bone density is normal. The soft tissues are normal. Sacroiliac joints: There is no erosion, widening, sclerosis, narrowing, or ankylosis ofeither sacroiliac joint. There is no fracture. The hip joint spaces are normal. Right knee: No acute fracture or dislocation is present. The jointspaces are normal. No erosions are seen. There is no effusion. Left knee: No acute fracture or dislocation is present. The joint spaces arenormal. No erosions are seen. There is no effusion. IMPRESSION: The above studies are normal. > Interpreting Provider: Christo Lopez MD on 11/11/2022 10:12 AM Saadia Londono MD DIAGNOSTIC ESTEPHANIA GING ORDERABLES * XR HIP LEFT 2VW OR MORE (11/11/2022 10:06 AM CDT) Anatomical Region Laterality Modality Pelvis, Lower Extremity Radiogra [facility] Imaging 11/11/2022 10:1 0 AM CDT Impressions 11/11/2022 10:12 AM CDT IMPRESSION: The above studies are normal. > Interpreting Provider: Christo Lopez MD on 11/11/2022 10:12 AM Narrative 11/11/2022 10:12 AM CDT PROCEDURE: XR HIP RIGHT 2VW OR MORE, XR HIP LEFT 2VW OR MORE, XR KNEE LEFT 3VW, XR KNEE RIGHT 3VW, XR SI JOINTS 3VW OR MORE DATE/TIME OF EXAM: 11/11/2022 10:06 AM CLINICAL INFORMATION: None relevant/not provided if blank. 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 FINDINGS: Right hip: No fracture or dislocation is present. The joint spaces are normal. No erosions are seen. Bone density is normal. The soft tissues are normal. Left hip: No fracture or dislocation is present. The joint spaces are normal. No erosions are seen. Bone density is normal. The soft tissues are normal. Sacroiliac joints: There is no erosion, widening, sclerosis, narrowing, or ankylosis of either sacroiliac joint. There is no fracture. The hip joint spaces are normal. Right knee: No acute fracture or dislocation is present. The joint spaces are normal. No erosions are seen. There is no effusion. Left knee: No acute fracture or dislocation is present. The joint spaces are normal. No erosions are seen. There is no effusion. Procedure Note Christo Lopez MD - 11/11/2022 PROCEDURE: XR HIP RIGHT 2VW OR MORE, XR HIP LEFT 2VW OR MORE, XR KNEELEFT 3VW, XR KNEE RIGHT 3VW, XR SI JOINTS 3VW OR MORE DATE/TIME OF EXAM: 11/11/2022 10:06 AM CLINICAL INFORMATION: None relevant/not provided if blank. 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 FINDINGS: Right hip: No fracture or dislocation is present. The joint spaces are normal. No erosions are seen. Bone density is normal. The soft tissues are normal. Left hip: No fracture or dislocation is present. The joint spaces are normal. No erosions are seen. Bone density is normal. The soft tissues are normal. Sacroiliac joints: There is no erosion, widening, sclerosis, narrowing, or ankylosis ofeither sacroiliac joint. There is no fracture. The hip joint spaces are normal. Right knee: No acute fracture or dislocation is present. The jointspaces are normal. No erosions are seen. There is no effusion. Left knee: No acute fracture or dislocation is present. The joint spaces arenormal. No erosions are seen. There is no effusion. IMPRESSION: The above studies are normal. > Interpreting Provider: Christo Lopez MD on 11/11/2022 10:12 AM Saadia Londono MD DIAGNOSTIC ESTEPHANIA GING ORDERABLES * XR SI JOINTS 3VW OR MORE (11/11/2022 10:06 AM CDT) Anatomical Region Laterality Modality Pelvis, Lower Extremity [facility] 11/11/2022 10:1 0 AM CDT Impressions 11/11/2022 10:12 AM CDT IMPRESSION: The above studies are normal. > Interpreting Provider: Christo Lopez MD on 11/11/2022 10:12 AM Narrative 11/11/2022 10:12 AM CDT PROCEDURE: XR HIP RIGHT 2VW OR MORE, XR HIP LEFT 2VW OR MORE, XR KNEE LEFT 3VW, XR KNEE RIGHT 3VW, XR SI JOINTS 3VW OR MORE DATE/TIME OF EXAM: 11/11/2022 10:06 AM CLINICAL INFORMATION: None relevant/not provided if blank. 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 FINDINGS: Right hip: No fracture or dislocation is present. The joint spaces are normal. No erosions are seen. Bone density is normal. The soft tissues are normal. Left hip: No fracture or dislocation is present. The joint spaces are normal. No erosions are seen. Bone density is normal. The soft tissues are normal. Sacroiliac joints: There is no erosion, widening, sclerosis, narrowing, or ankylosis of either sacroiliac joint. There is no fracture. The hip joint spaces are normal. Right knee: No acute fracture or dislocation is present. The joint spaces are normal. No erosions are seen. There is no effusion. Left knee: No acute fracture or dislocation is present. The joint spaces are normal. No erosions are seen. There is no effusion. Procedure Note Christo Lopez MD - 11/11/2022 PROCEDURE: XR HIP RIGHT 2VW OR MORE, XR HIP LEFT 2VW OR MORE, XR KNEELEFT 3VW, XR KNEE RIGHT 3VW, XR SI JOINTS 3VW OR MORE DATE/TIME OF EXAM: 11/11/2022 10:06 AM CLINICAL INFORMATION: None relevant/not provided if blank. 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 FINDINGS: Right hip: No fracture or dislocation is present. The joint spaces are normal. No erosions are seen. Bone density is normal. The soft tissues are normal. Left hip: No fracture or dislocation is present. The joint spaces are normal. No erosions are seen. Bone density is normal. The soft tissues are normal. Sacroiliac joints: There is no erosion, widening, sclerosis, narrowing, or ankylosis ofeither sacroiliac joint. There is no fracture. The hip joint spaces are normal. Right knee: No acute fracture or dislocation is present. The jointspaces are normal. No erosions are seen. There is no effusion. Left knee: No acute fracture or dislocation is present. The joint spaces arenormal. No erosions are seen. There is no effusion. IMPRESSION: The above studies are normal. > Interpreting Provider: Christo Lopez MD on 11/11/2022 10:12 AM Saadia Bandlamudi Bry MD DIAGNOSTIC ESTEPHANIA GING ORDERABLES * VITAMIN E (05/05/2022 2:38 PM FIRE FIGHTING EQUIPMENT SPECIALIST) Vitamin E Alpha Tocopherol 7.4 5.5 - 18.0 mg/L 05/08/2022 12:55 PM FIRE FIGHTING EQUIPMENT SPECIALIST [facility] Comment: This test was developed and its performance characteristics determined by [employer]. It has not been cleared or approved by the US Food and Drug Administration. This test was performed in a CLIA certified laboratory and is intended for clinical purposes. Vitamin E Gamma Tocopherol 1.3 0.0 - 6.0 mg/L 05/08/2022 12:55 PM FIRE FIGHTING EQUIPMENT SPECIALIST [facility] Comment: Performed By: [employer] [address] [place] [address] Endoscopic Technician: Moisés Mcgill MD, PhD Blood BLOOD SPECIMEN / Unknown Lab Venipuncture / Unknown 05/05/2022 2:38 PM FIRE FIGHTING EQUIPMENT SPECIALIST 05/05/2022 3:26 PM FIRE FIGHTING EQUIPMENT SPECIALIST Falguni Faulkner MD LAB - CHEMISTRY LELO LUX [facility]) [address] [place] [address] * HEMOGLOBIN A1C (05/05/2022 2:38 PM FIRE FIGHTING EQUIPMENT SPECIALIST) Pathologist [facility] Hemoglobin A1c 4.8 <=5.6 % 05/06/2022 2:07 PM FIRE FIGHTING EQUIPMENT SPECIALIST [facility] Estimated Average Glucose 91 mg/dL 05/06/2022 2:07 PM FIRE FIGHTING EQUIPMENT SPECIALIST [facility] Comment: HbA1c Interpretation: Normal : < 5.7% Pre-diabetes: 5.7-6.4% Diabetes: Equal to or greater than 6.5% Test results diagnostic of diabetes should be repeated for confirmation. Treatment target values recommended by ADA and other clinical organizations should be used to evaluate metabolic control in patients. Reference: [place] Diabetes Association, Standards of Care in Diabetes -2020 In patients 70 years and older consider HbA1c target range of 7.0-7.5% (Reference: Eduardo Vila et al. JAMDA. 2012) The Sebia assay for the measurement of HbA1c is a National Glycohemoglobin Standardization Program (NGSP) certified method. HbA1c Interpretation: Normal : < 5.7% Pre-diabetes: 5.7-6.4% Diabetes: Equal to or greater than 6.5% Test results diagnostic of diabetes should be repeated for confirmation. Treatment target values recommended by ADA and other clinical organizations should be used to evaluate metabolic control in patients. Reference: [place] Diabetes Association, Standards of Care in Diabetes -2020 In patients 70 years and older consider HbA1c target range of 7.0-7.5% (Reference: Eduardo Vila et al. MARANDADA. 2012) The Sebia assay for the measurement of HbA1c is a National Glycohemoglobin Standardization Program (NGSP) certified method. Blood BLOOD SPECIMEN / Unknown Lab Venipuncture / Unknown 05/05/2022 2:38 PM FIRE FIGHTING EQUIPMENT SPECIALIST 05/05/2022 4:10 PM FIRE FIGHTING EQUIPMENT SPECIALIST Falguni Faulkner MD LAB - CHEMISTRY [facility] [address] [address], [place] [phone] * VITAMIN B12 (05/05/2022 2:38 PM FIRE FIGHTING EQUIPMENT SPECIALIST) Vitamin B12 352 213 - 816 pg/mL 05/05/2022 5:11 PM FIRE FIGHTING EQUIPMENT SPECIALIST [facility] Blood BLOOD SPECIMEN / Unknown Lab Venipuncture / Unknown 05/05/2022 2:38 PM FIRE FIGHTING EQUIPMENT SPECIALIST 05/05/2022 4:10 PM FIRE FIGHTING EQUIPMENT SPECIALIST Falguni Faulkner MD LAB - CHEMISTRY [facility] [address] [address], [place] [phone] * SKIN TEST PPD - POINT OF CARE (10/27/2019 9:15 AM CDT) Only the most recent of2 resultswithin the time period is included. PPD Other MISCELLANEOUS SAMPLE S / Unknown 10/27/2019 9:15 AM CDT Jatin Blank [employer] MEASUREMENTS ENGINEER-OUTSIDE SALESMAN LAB - POINT OF CARE ORDERABLES Care Teams Educational Sign Language Interpreter Relationship Specialty Start Date End Date Pau Hernandez APRN-MORA [address] [place] [address] PCP - General 12/16/21 Wilfred Toussaint MD [address] [facility] 7 DIV OBGYN FAMILY PLANNING, [address] [address] Obstetrics and Gynecology 04/20/23
--- OUTSIDE RECORDS SUMMARY | 2024-04-15 01:38 | XMS_ITS | Patient Health Record ---
[facility] Address [address] [address] Care Team Providers Care Shirt Sorter Name Role Phone Reuben Merrill Primary Care Provider [phone] Allergies Allergen (clinical drug ingredient) Drug/Non Drug Allergy documented on EMR Reaction Allergy Type Onset Date Status lidocaine Lidocaine rash Drug Allergy Active Reason For Referral No Information Medications Medication SIG (Take, Route, Frequency, Duration) Notes Start Date End Date Status Claritin 10 MG 1 tablet Orally Once a day as needed Active Albuterol Sulfate 108 (90 Base) MCG/ACT 1 puff as needed Inhalation Three times a day Active Social History Tobacco Use: Social History Observation Description Date Details (start date - stop date) Never Smoker NA - NA Tobacco Use/Smoking Question Answer Notes Are you a nonsmoker Alcohol Screen (Audit-C) Question Answer Notes Did you have a drink contain ing alcohol in the past year? Yes How often did you have a dri nk containing alcohol in the past year? Monthly or less (1 point) How many drinks did you have on a typical day when you were drinking in the past year? 1 or 2 drinks (0 point) How often did you have 6 or more drinks on one occasion in the past year? Never (0 point) Points 1 Interpretation Negative Sexual History Question Answer Notes Had sex in the past 12 months (vaginal, oral, or anal)? Yes with Men only Use protection? Yes How often? All of the time Have you ever had a Sexually transmitted disease ? No Problems Problem Type SNOMED Code ICD Code Onset Dates Problem Status W/U Status Risk Notes Problem 30934608 Orthostatic hypotension (I95.1) Active confirmed Problem 690264895 Irritable bowel syndrome with diarrhea (K58.0) Active confirmed Problem 611946392 Mild intermitten t asthma without complication (J45.20) Active confirmed Problem 05294831 Allergic rhinitis, unspecified seasonality, unspecified trigger (J30.9) Active confirmed Problem 65998260 Contact dermatitis, unspecified contact dermatitis type, unspecified trigger (L25.9) Active confirmed Problem 418944491 Polycystic ovary (E28.2) Active confirmed Problem 76456953 Heart palpitations (R00.2) Active confirmed Plan Of Treatment No Information Insurance Providers Payer Name Payer Address Payer Phone Subscriber Number Group Number Insured Name Patient Relationship to Insured Coverage Start Date Coverage End Date [facility] [address] [address] [place] [address] [id number] [employer] Self - patient is the insured Medical (General) History Medical History History ICD Code Asthma IBS Polycystic Ovaries Headaches Surgical History Surgery Date(Month/Year) foot surgery wisdom teeth
--- OUTSIDE RECORDS SUMMARY | 2024-04-15 01:38 | XMS_ITS | Clinical Summary ---
Author Organization [facility] Address [address] [place] [address] Care Team Providers Care Tools Administrator Name Role Phone Michelle Izaguirre MD Unavailable [phone] Pau Hernandez MD Unavailable [phone] No, Physician Primary Care Provider [phone] Allergies Active Allergy Reactions Criticality Noted Date [...] 13 05/12/2002 ,2001,2001,05/19 Tdap 10/31/2011 Varicella 12/21/2015,02/01/2002 Surgical History Surgery Date Site/Laterality Comments BUNIONECTOMY right foot Medical History Medical History Date Comments IBS (irritable bowel syndrome) Dysmenorrhea Heavy periods Ovarian cyst Family History Medical History Relation Name Comments No Known Problems Father Heart disease Maternal Grandfather Family history of cardiac disorder - (Added by TW Conv) Stroke Maternal Grandfather Family history of cerebrovascular accident - (Added by TW Conv) Ovarian cancer Maternal Grandmother Famil y history of ovarian cancer - (Added by TW Conv) Asthma Mother Family history of asthma - (Added by TW Conv) Depression Mother Family history of depression - (Added by TW Conv) Migraines Mother Family history of migraine headaches - (Added by TW Conv) Heart disease Other 1 Family history of cardiac disorder - Relation: Grandparent (Added by TW Conv) Hypertension Other 2 Family history of hypertension - Relation: Grandparent (Added by TW Conv) Osteoporosis Paternal Grandmother Family history of osteoporosis - (Added by TW Conv) Relation Name Status Comments Father Alive Maternal Grandfather Maternal Grandmother Mother Alive Other 1 Other 2 Paternal Grandmother Social History Tobacco Use Types Packs/Day Years [...] on file Legal Sex Female 4:05 AM RECORD TABULATING CLERK Gender Identity Female 12/18/2017 3:52 PM CDT Sexual Orientation Not on file Obstetrics History Para Term AB IAB SAB Ectopic Multiple Livin g Live Births 0 0 0 0 0 0 0 0 0 0 0 Last Filed Vital Signs Vital Sign Reading Time Taken Comments Blood Pressure 142/91 12/10/2022 2:18 PM CDT Pulse 82 04/03/2022 7:51 AM RECORD TABULATING CLERK Temperature 36.9 C (98.5 F) 12/04/2021 1:07 PM CDT Respiratory Rate 16 04/03/2022 7:51 AM RECORD TABULATING CLERK Oxygen Saturation 100% 08/21/2021 11:18 AM CDT Inhaled Oxygen Concentration - - Weight 56.2 kg (124 lb) 12/10/2022 2:18 PM CDT Height 162.6 cm (5' 4 ) 12/10/2022 2:18 PM CDT Body Mass Index 21.28 12/10/2022 2:18 PM CDT Plan of Treatment Health Maintenance Due Date Last Done Comments Cervical Cancer Screening 2001 Depression Screening 2001 Hepatitis C Screening 2001 Pneumococcal vaccine <65 (1 of 1 - PPSV23 or PCV20) 2007 05/12/2002, 2001, 2001, Additional history exists HPV Vaccines (1 - 3-dose series) 02/01/2016 Meningococcal B Vaccine (1 o f 2 - Patient Seeks Protection) 2017 DTaP/Tdap/Td Vaccine (7 - Td or Tdap) 10/30/2021 10/31/2011, 10/08/2006, 09/06/2002, Additional history exists Regular Well Visit/Exam 18-64 08/15/2022 08/15/2021 Chlamydia and Gonorrhea (GC/ CT) Screening 08/23/2022 08/23/2021, 11/13/2017 Covid-19 Vaccine (3 - 2023-2 5 season) 2023 04/08/2020, 03/18/2020 Influenza Vaccine (#1) 2023 2, 01/02/2021, 01/02/2021, Additional history exists Varicella Vaccines Completed 12/21/2015, 02/01/2002 Procedures Procedure Name Priority Date/Time Associated Diagnosis Comments N. GONORRHOEAE/C. TRACHOMATIS AMPLIFICATION Routine 08/23/2021 1:48 PM CDT Routine screening for STI (sexually transmitted infection) from Last 3 Months or Most Recently Relevant to Health Maintenance Results * N. gonorrhoeae/C. trachomatis Amplification Urine (08/23/2021 1:48 PM CDT) C. trachomatis Not Detected Not [facility]ed [facility] N. gonorrhoeae Not Detected Not Detected [facility] Comment: Interpretive Data Testing performed by the [facility]. This assay detects Chlamydia trachomatis and [...] LAB MICROBIOLOGY - GENERAL ORDERABLES Final Result [facility] Department [place] [address] from Last 3 Months or Most Recently Relevant to Health Maintenance Insurance [facility] H[facility]/PPO Address: [facility] [address] [place] [address] [facility] CHOICE PLUS [facility] H[facility]/PPO Address: [address] [place] [id number] [facility] CHOICE PLUS [facility] H[facility]/PPO Address: [address] [address] [place] [address] Care Teams Tools Administrator Relationship Specialty Start Date End Date No, Physician PCP - General 08/25/22 Michelle Izaguirre MD 07/10/20 Pau Hernandez MD Nurse Practitioner 10/10/20
--- OUTSIDE RECORDS SUMMARY | 2024-04-15 01:38 | XMS_ITS | Referral Summary ---
Author Organization [facility] Address [address] [facility] [place] [address] Care Team Providers Care Glue Sprayer Name Role Phone Pau Hernandez APRN-STAFF RN Primary Care Provi shayy Wilfred Toussaint MD Unavailable [phone] Source Comments [facility],non-owned Affiliates and Associated Physician Practices is amultiple site organization consisting of ambulatory clinics and hospital sitesin [place], [place], [place] and [place]. This disclosure is being madepursuant to the Care Everywhere program and may not contain all information available regarding this patient. Last updated 17.[facility] Allergies Active Allergy Reactions Criticality Noted [...] 07/14/2023 10:00 AM CDT Plan of Treatment Not on file [...] Agency Comment Lab Testing performed at: [facility] [address] [facility] [id number] Saadia Londono MD LAB - CHEMISTR Y ORDERABLES [facility] INSURANCE BILL [address] [place] [address] from Last 3 Months or Most Recently Relevant to Health Maintenance Administered Medications Care Teams Glue Sprayer Relationship Specialty Start Date End Date Pau Hernandez, HARNESS MENDER-STAFF RN [address] [place] [address] PCP - General 12/16/21 Wilfred Toussaint MD [address] [facility] 7 DIV OBGYN FAMILY PLANNING, [facility] [address] [place] [address] Obstetrics and Gynecology 2/12/24
--- OUTSIDE RECORDS SUMMARY | 2024-04-15 01:38 | XMS_ITS | Clinical Summary ---
Author Organization [facility] Care Team Providers Care Chainstitch Tunnel Elastic Operator Name Role Phone Unavailable Primary Care Provider Unavailabl e Social History Tobacco Use Types Packs/Day Years Used Date Smoking Tobacco: Never Assessed Comments Unknown Sex and Gender Information Value Date Recorded Sex Assigned at Not on file Legal Sex Female 8:53 AM CLAIM REVIEW MEDICAL DIRECTOR Gender Identity Not on file Sexual Orientation Not on file Plan of Treatment Health Maintenance Due Date Last Done Comments Hepatitis C Virus (HCV) Screening 2001 Human Papillomavirus (HPV) Immunization (1 - 3-dose series) 02/01/2016 Meningococcal B Immunization (1 of 2 - Standard) 2017 Pap Smear 2022 Influenza Immunization (#1) 2023 12/10/2019, 1 SARS-COV-2 Immunization (3 - season) 2023 04/08/2020, 03/18/2020 Respiratory Syncytial Virus (RSV) Immunization (Adult) (1 - 1-dose 75+ series) 02/01/2076 Hepatitis B Immunization Completed 002, 2001, 2001 Pneumococcal Immunization Combined Completed 05/12/2002, 2001, 2001, Additional history exists DTaP/Tdap/Td Immunization Discontinued 2011, 10/08/2006, 09/06/2002, Additional history exists TdaP Immunization Completed 10/31/2011 Meningococcal Immunization (ACWY) Completed 10/08/2018, 10/19/2015 Rotavirus Immunization Aged Out No lo nger eligible based on patient's age to complete this topic
--- NOTE | 2024-04-15 07:23 | WPDHPUPDATE1 ---
History and Physical Update Update Date/Time: 04/15/24 07:23 History and Physical has been reviewed, including an updated exam of the patient. There are NO changes in the patient's condition. Risks, benefits, and alternatives have been discussed and questions answered. Patient agrees to proceed with procedure.
[2024-04-15 11:10] VITALS: BP 120/70; PULSE 88; RESP 18; TEMP 36.8; O2SAT 100
[2024-04-15 11:50] VITALS: BMI 22.5
[2024-04-15] MEDS: ACETAMINOPHEN 500 MG TABLET 1000 MG PO (11:50)
--- NOTE | 2024-04-15 11:54 | WPDANESEPPF ---
Anes - Initial Pre Proc Eval Procedure: Operation Date: 04/15/24 13:00 Proposed Procedures p Suction Dilation and Curettage - Khanh Brewer MD Date/Time: 04/15/24 11:54 Surgeon: Khanh Brewer MD Pre Op Diagnosis: missed Patient Data Age: 24 Gender: F Height: 1.61 m Weight: 61.4 kg Allergies Allergy/AdvReac Type Severity Reaction Status Date / Time latex Allergy Hives Verified 04/14/24 10:35 oseltamivir (From Tamiflu) Allergy Swelling Verified 04/14/24 10:35 of Lip/Tongue/Throat lidocaine gargle Allergy Intermediate swelling Uncoded 04/14/24 10:35 Grass Allergy Unknown Unknown Uncoded 04/14/24 10:35 HAY AdvReac Mild Unknown Uncoded 04/14/24 10:35 Home Medications ?Medication ?Instructions ?Recorded ?Confirmed ?Type midodrine 2.5 mg tablet 2.5 mg PO TID PRN Hypotension 01/24/22 04/14/24 History propranolol 10 mg tablet 12.5 mg PO BID 06/29/23 04/14/24 History hydrocodone 5 mg-acetaminophen 325 1 tablet PO Q4H PRN pain #14 tabs 04/15/24 Rx mg tablet Patient hx anesthesia problems: none Family hx anesthesia problems: none Results Review: All pre-operative results and documents have been reviewed as part of the pre-operative evaluation. [facility] Past Medical History Medical History 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, adult machine i coremaker current use of hormonal contraceptive Hyponatremia Surgical History Surgical History History of bunionectomy [place] teeth removed Family History Family History Grandparent Family history of osteoporosis Family history of malignant neoplasm of ovary Mother Depression Family history of migraine headaches Asthma Other Family history of alcoholism Family history of arthritis Family history of malignant neoplasm Hypertension Social History Social History Years smoked: 2 Smoking status: Current every day smoker Tobacco type: e-cigarettes/vaping Second hand tobacco smoke exposure: No Alcohol intake: current Drinks per week: 1 Substance use: never Substance use type: does not use Living arrangements: with family Occupation/Education: student Additional occupation/education comments: 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 Gender identity (if verbalized by the patient): Female Spiritual care concerns: No Anes - Eval Final PreProcedure Day of Procedure 04/15/24 11:54 Patient weight: normal Heart: regular rate and rhythm Lungs: clear to auscultation Airway: Mallampati scale class II Neurological: alert and oriented Last oral intake: >/= 8 hours ASA classification: II Emergent: no Anesthetic plan: proceed Anesthesia type and monitoring: general GIVS and standard monitoring Results Review: All pre-operative results and documents have been reviewed as part of the pre-operative evaluation. Informed Consent: The patient's anesthetic plan and its attendant risks and benefits were discussed with the patient/family/POA. Questions were solicited and answers provided to the satisfaction of the patient/family/POA.
--- NOTE | 2024-04-15 11:55 | SUR.PREOP ---
1155- Notified Dr. Brie Brewer patient has orders for H&H and needs IV access placed prior to procedure. Vascular access nurse at bedside for IV placement with ultrasound. Per Dr. Brie Brewer can proceed to OR without H&H and cancel orders for labs.
[2024-04-15] MEDS: LACTATED RINGERS 1,000 ML 30 ML IV CONT (12:08)
--- NOTE | 2024-04-15 12:31 | W.PM.PROC2 ---
Procedure Note - Detailed Date of Procedure 04/15/24 Pre-op Diagnosis missed Post-op Diagnosis Same Procedure Performed Suction dilatation and curettage Surgeon Khanh Brewer MD Anesthesia MAC and Local Indications 24-year-old female 1st trimester with incomplete AB Findings Uterus sounded to 9cm. Tissue consistent with products of conception Description of Procedure Patient was prepped draped sterile fashion placed in dorsal lithotomy position. Excellent IV sedation speculum placed in posterior fornix. Anterior lip of the cervix grasped with single-tooth. Uterus sounded to 9. Serial dilatation fragmented dilators performed followed by passage of the 10. Suction curette. Moderate amount of placental tissue and tissue was removed. When a good grating sound was heard in the instruments were withdrawn. The patient went to recovery in satisfactory condition. All sponge, needle, instrument counts were correct. There were no immediate complications. She did not require RhoGAM if she is Rh positive Estimated Blood Loss 25 Drains No Packing No Pathology Yes Complications No immediate complications Condition Stable Disposition PACU
[2024-04-15 12:32] VITALS: BP 114/84; PULSE 79; RESP 12; O2SAT 100
[2024-04-15 13:00] VITALS: BP 107/63; PULSE 72; RESP 12
[2024-04-15] MEDS: oxyCODONE HCL (*CRX) 5 MG TAB IR PO (13:10)
[2024-04-15 13:30] VITALS: BP 103/68; PULSE 66; RESP 20
== END 2024-04-15 13:38 | disposition home or self-care (01) ==
PROVIDERS: PCP Nurse Practitioner; Visit Provider Obstetrics & Gynecology
PROC: (CPT 59820; principal; 2024-04-15 13:00)
DX: O03.4 Incomplete spontaneous abortion without complication (principal); E87.1 Hypo-osmolality and hyponatremia; F17.290 Nicotine dependence, other tobacco product, uncomplicated; Z79.891 Long term (current) use of opiate analgesic; Z98.890 Other specified postprocedural states; Z80.41 Family history of malignant neoplasm of ovary
CPT/HCPCS: 59820; 88305; A9270; J1100; J2250; J2405; J2704; J3010; J7120

== ENCOUNTER 2025-03-07 02:16 | Emergency (ER) | payer OTHER, SELFPAY ==
[2025-03-07 02:21] VITALS: BP 113/72; PULSE 84; RESP 16; TEMP 36.7; O2SAT 100
[2025-03-07 03:34] LABS: Influenza A QL RT-PCR Negative (Negative); Influenza B QL RT-PCR Negative (Negative); RSV RNA, RT-PCR Negative (Negative); SARS-CoV-2 RNA PCR Negative (Negative)
[2025-03-07 04:10] LABS: BEDSIDEPREGUCG Positive (Negative)
[2025-03-07 05:03] VITALS: BP 119/71; PULSE 72; RESP 16; TEMP 37.1; O2SAT 100
--- NOTE | 2025-03-07 05:12 | PC.NURSE ---
no straight cath needed, pt able to provide urine sample.
[2025-03-07 05:16] LABS: Hematocrit 43.0 % (37.0-47.0); Hemoglobin 14.3 g/dL (12.0-15.0); Immature Granulocyte Percent A 0.4 % (0-0.5); Lymphocytes Absolute Auto 1.35 K/mm3 (0.9-3.2); Mean Corpuscular HGB Conc 33.3 g/dl (32-36); Mean Corpuscular Hemoglobin 30.7 pg (26-34); Mean Corpuscular Volume 92.3 fl (80-100); Nucleated Red Blood Cells Absolute Auto 0.000 K/mm3 (0.0-0.012); Nucleated Red Blood Cells Perc 0.0 % (0.0-0.2); Platelet Count Result 232 k/mm3 (150-375); Red Blood Count 4.66 M/mm3 (4.2-5.4); White Blood Count 10.1 K/mm3 (4.5-10.0)
[2025-03-07 05:28] LABS: Alanine Aminotransferase 16 U/L (6-35); Albumin Level 4.8 g/dL (3.5-5.1); Alkaline Phosphatase 55 U/L (38-126); Anion Gap 9 mmol/L (4-12); Aspartate Amino Transferase 26 U/L (14-36); Bilirubin,Total 0.7 mg/dL (0.2-1.3); Blood Urea Nitrogen 9 mg/dL (7-17); Calcium 9.3 mg/dL (8.4-10.2); Carbon Dioxide 25 mmol/L (22-30); Chloride 104 mmol/L (98-107); Estimated CRCL calculation 99 ml/min; Estimated Glomerular Filt Rate > 60; Glucose 91 mg/dL (65-110); Lipase 90 U/L (23-300); Potassium 4.0 mmol/L (3.4-5.0); Sodium 138 mmol/L (137-145); Total Protein 8.6 g/dL (6.3-8.2)
[2025-03-07 05:29] LABS: Add Urine Microscopic? YES; Appearance Urine Cloudy (Clear); Glucose Urine UA Negative (Negative); Leukocyte Esterase Ur 2+ LEU/UL (Negative); Need Manual Microscopic Reviewed; Nitrate Urine Negative (Negative); Specific Grav Ur 1.029 (1.001-1.035)
[2025-03-07 06:07] VITALS: BP 93/56; PULSE 76; RESP 15; O2SAT 99
--- NOTE | 2025-03-07 06:12 | ED_ITS ---
HPI - Nausea/Vomiting/Diarrhea General Chief complaint: Nausea/Vomiting/Diarrhea Stated complaint: cant keep fluids down, headache (6weeks preg) Time Seen by Provider: 03/07/25 06:04 History of Present Illness HPI Narrative: 25-year-old female about 6 weeks presenting to the emergency depart with nausea, vomiting, lightheadedness and dizziness. States she has been vomiting numerous times over last few weeks. Had a previous that did not have any morning sickness type symptoms. She had her 1st OBGYN appointment today. Was otherwise in her normal state of health. Denies any recent illnesses. No recent antibiotic use. No recent sick contacts. Has tried some [id number] therapies and peppermint oil without any significant relief of symptoms. She states she has had Zofran and Compazine in the past and does not agree with her. Related Data Home Medications ?Medication ?Instructions ?Recorded ?Confirmed ?Last Taken ?Type midodrine 2.5 mg tablet 2.5 mg PO TID PRN Hypotensio n 01/24/22 04/14/24 Unknown History propranolol 10 mg tablet 12.5 mg PO BID 06/29/23 0208/31 Unknown History Allergies Allergy/AdvReac Type Severity Reaction Status Date / Time latex Allergy Hives Verified 04/15/24 12:02 oseltamivir (From Tamiflu) Allergy Swelling Verified 04/15/24 12:02 of Lip/Tongue/Throat lidocaine gargle Allergy Intermediate swelling Uncoded 04/15/24 12:02 Grass Allergy Unknown Unknown Uncoded 04/15/24 12:02 HAY AdvReac Mild Unknown Uncoded 04/15/24 12:02 Review of Systems 2 Review of Systems: As reviewed above in HPI All systems reviewed & are unremarkable except as noted in HPI and below [facility] Past Medical History Medical History (Updated 03/08/25 @ 00:00 by Background Daemon) 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, 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 Hyponatremia Surgical History Surgical History History of bunionectomy [place] teeth removed Family History Family History Grandparent Family history of osteoporosis Family history of malignant neoplasm of ovary Mother Depression Family history of migraine headaches Asthma Other Family history of alcoholism Family history of arthritis Family history of malignant neoplasm Hypertension Social History Social History Years smoked: 2 Smoking status: Current every day smoker Tobacco type: e-cigarettes/vaping Second hand tobacco smoke exposure: No Alcohol intake: current Drinks per week: 1 Substance use: never Substance use type: does not use Living arrangements: with family Occupation/Education: student Additional occupation/education comments: 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 Gender identity (if verbalized by the patient): Female Spiritual care concerns: No Exam 2 Narrative: GENERAL: [Well-appearing, well-nourished, and in no acute distress.] HEAD: [Normocephalic, atraumatic.] EYES: [PERRLA and EOMI.] ENT: Nares clear, no rhinorrhea or epistaxis. Mucous membranes moist. NECK: Supple. CHEST: [Clear to auscultation. No respiratory distress.] HEART: [Regular rate and rhythm]. No murmur heard. [Normal peripheral pulses.] ABDOMEN: [Soft, nondistended], [nontender], [No rigidity or guarding] EXTREMITIES: Normal range of motion. [No edema.] SKIN: Warm, dry, no rash. NEURO: [No focal deficits]. Alert and oriented [x3.] PSYCH: [Normal mood and affect.] Course Vital Signs Vital signs: Vital Signs Temperature 36.7 C 03/07/25 02:21 Pulse Rate 84 03/07/25 02:21 Respiratory Rate 16 03/07/25 02:21 Blood Pressure 113/72 03/07/25 02:21 Pulse Oximetry 100 03/07/25 02:21 Oxygen Delivery Room Air 03/07/25 02:21 Temperature 37.1 C 03/07/25 05:03 Pulse Rate 77 03/07/25 08:11 Respiratory Rate 14 03/07/25 08:11 Blood Pressure 127/61 03/07/25 08:11 Pulse Oximetry 100 03/07/25 08:11 Oxygen Delivery Room Air 03/07/25 02:21 [facility] MDM Narrative Medical decision making narrative: 25-year-old female about 6 weeks presenting to the emergency depart with nausea, vomiting, lightheadedness and dizziness. States she has been vomiting numerous times over last few weeks. Had a previous that did not have any morning sickness type symptoms. She had her 1st OBGYN appointment today. Was otherwise in her normal state of health. Denies any recent illnesses. No recent antibiotic use. No recent sick contacts. Has tried some hkhd-iuw-[id number] therapies and peppermint oil without any significant relief of symptoms. She states she has had Zofran and Compazine in the past and does not agree with her. Patient otherwise is well appearing not any distress. She vomited last time about 3 hours ago. Hemodynamically stable without any tachycardia, fever, hypoxemia. Blood work obtained in triage was unremarkable. Suspect morning sickness or related nausea and vomiting. Low suspicion gastroenteritis, gastritis, viral syndrome, COVID, flu. She has no pelvic complaints or vaginal bleeding. Already established with OBGYN which is reassuring. Laboratory studies and urinalysis ordered and she was given fluids with dextrose, vitamin B6, Compazine and diphenhydramine and re-evaluated. Will be discharged with a regimen for nausea control and encouraged to follow-up with her OBGYN. Urinalysis does show some bacteria but she has no urinary complaints whatsoever we will still treat this as asymptomatic bacteriuria in with a short course of Keflex. Differential Diagnosis Differential Diagnosis: Suspect morning sickness or related nausea and vomiting. Low suspicion gastroenteritis, gastritis, viral syndrome, COVID, flu. Lab Data 03/07/25 05:09 03/07/25 05:09 Labs: Lab Results 03/07/25 03/07/25 03/07/25 Range/Units 02:52 04:08 05:08 WBC (4.5-10.0) K/mm3 RBC (4.2-5.4) M/mm3 Hgb (12.0-15.0) g/dL Hct (37.0-47.0) % MCV (80-100) fl MCH (26-34) pg MCHC (32-36) g/dl RDW (11.5-14.5) % Plt Count (150-375) k/mm3 MPV (7.4-10.4) fl Immature Gran % (Auto) (0-0.5) % Neut % (Auto) (45.5-73.1) % Lymph % (Auto) (18.3-44.2) % [place] % (Auto) (2.6-8.5) % Eos % (Auto) (0-4.4) % Baso % (Auto) (0.2-1.2) % Lymph # (Auto) (0.9-3.2) K/mm3 [place] # (Auto) (0.1-0.6) K/mm3 Eos # (Auto) (0-0.3) K/mm3 Baso # (Auto) (0.0-0.1) K/mm3 Abs Immat Gran (auto) (0.00-0.031) K/mm3 Absolute Neuts (auto) (1.3-6.7) K/mm3 Absolute Nucleated RBC (0.0-0.012) K/mm3 Nucleated RBC % (0.0-0.2) % Sodium (137-145) mmol/L Potassium (3.4-5.0) mmol/L Chloride (98-107) mmol/L Carbon Dioxide (22-30) mmol/L Anion Gap (4-12) mmol/L BUN (7-17) mg/dL Creatinine (0.7-1.0) mg/dL Estim Creat Clear Calc ml/min Estimated GFR (59 - ) Glucose (65-110) mg/dL Calcium (8.4-10.2) mg/dL Total Bilirubin (0.2-1.3) mg/dL AST (14-36) U/L ALT (6-35) U/L Alkaline Phosphatase (38-126) U/L Total Protein (6.3-8.2) g/dL Albumin (3.5-5.1) g/dL Lipase (23-300) U/L Urine Color Yellow (Yellow) Urine Appearance Cloudy H (Clear) Urine pH 6.5 (5.0-9.0) Ur Specific [place] 1.029 (1.001-1.035) Urine Protein Trace (Negative) mg/dL Urine Glucose (UA) Negative (Negative) mg/dL Urine Ketones Trace H (Negative) mg/dL Ur Blood (Man) Negative (Negative) Urine Nitrate Negative (Negative) Urine Bilirubin Negative (Negative) Urine Urobilinogen 1.0 (<2.0) mg/dL Add Ur Microanalysis Reviewed Leukocyte Esterase Rfl 2+ H (Negative) JOELLE/UL Urine RBC 3-5 H (0-2) /hpf Urine WBC 51-100 H (0-3) /hpf Ur Squamous Epith Cells Moderate (Few) /hpf Urine Bacteria 4+ H /hpf Urine Casts 11-20 Urine Mucus Present /lpf POC Urine HCG, Qual Positive (Negative) Influenza A (RT-PCR) Negative (Negative) Influenza B (RT-PCR) Negative (Negative) RSV (RT-PCR) Negative (Negative) SARS-CoV-2 RNA (RT-PCR) Negative (Negative) 03/07/25 Range/Units 05:09 WBC 10.1 H (4.5-10.0) K/mm3 RBC 4.66 (4.2-5.4) M/mm3 Hgb 14.3 (12.0-15.0) g/dL Hct 43.0 (37.0-47.0) % MCV 92.3 (80-100) fl MCH 30.7 (26-34) pg MCHC 33.3 (32-36) g/dl RDW 12.1 (11.5-14.5) % Plt Count 232 (150-375) k/mm3 MPV 10.2 (7.4-10.4) fl Immature Gran % (Auto) 0.4 (0-0.5) % Neut % (Auto) 79.9 H (45.5-73.1) % Lymph % (Auto) 13.4 L (18.3-44.2) % [place] % (Auto) 5.5 (2.6-8.5) % Eos % (Auto) 0.3 (0-4.4) % Baso % (Auto) 0.5 (0.2-1.2) % Lymph # (Auto) 1.35 (0.9-3.2) K/mm3 [place] # (Auto) 0.6 (0.1-0.6) K/mm3 Eos # (Auto) 0.0 (0-0.3) K/mm3 Baso # (Auto) 0.1 (0.0-0.1) K/mm3 Abs Immat Gran (auto) 0.04 H (0.00-0.031) K/mm3 Absolute Neuts (auto) 8.1 H (1.3-6.7) K/mm3 Absolute Nucleated RBC 0.000 (0.0-0.012) K/mm3 Nucleated RBC % 0.0 (0.0-0.2) % Sodium 138 (137-145) mmol/L Potassium 4.0 (3.4-5.0) mmol/L Chloride 104 (98-107) mmol/L Carbon Dioxide 25 (22-30) mmol/L Anion Gap 9 (4-12) mmol/L BUN 9 D (7-17) mg/dL Creatinine 0.65 L (0.7-1.0) mg/dL Estim Creat Clear Calc 99 ml/min Estimated GFR > 60 (59 - ) Glucose 91 (65-110) mg/dL Calcium 9.3 (8.4-10.2) mg/dL Total Bilirubin 0.7 (0.2-1.3) mg/dL AST 26 (14-36) U/L ALT 16 (6-35) U/L Alkaline Phosphatase 55 (38-126) U/L Total Protein 8.6 H (6.3-8.2) g/dL Albumin 4.8 (3.5-5.1) g/dL Lipase 90 (23-300) U/L Urine Color (Yellow) Urine Appearance (Clear) Urine pH (5.0-9.0) Ur Specific [place] (1.001-1.035) Urine Protein (Negative) mg/dL Urine Glucose (UA) (Negative) mg/dL Urine Ketones (Negative) mg/dL Ur Blood (Man) (Negative) Urine Nitrate (Negative) Urine Bilirubin (Negative) Urine Urobilinogen (<2.0) mg/dL Add Ur Microanalysis Leukocyte Esterase Rfl (Negative) JOELLE/UL Urine RBC (0-2) /hpf Urine WBC (0-3) /hpf Ur Squamous Epith Cells (Few) /hpf Urine Bacteria /hpf Urine Casts Urine Mucus /lpf POC Urine HCG, Qual (Negative) Influenza A (RT-PCR) (Negative) Influenza B (RT-PCR) (Negative) RSV (RT-PCR) (Negative) SARS-CoV-2 RNA (RT-PCR) (Negative) Discharge Plan Discharge Clinical Impression: Nausea and vomiting during , Asymptomatic bacteriuria during Patient Disposition: Home Condition: Stable Instructions: Antibiotic Form, Nausea and Vomiting in (ED) Additional Instructions: Laboratory studies are all reassuring. You do have some bacteria in the urine that needs to be treated in the setting of . We have given you prescriptions for antiemetics as well as a low-dose antibiotic to take care of the bacteria. Take the Reglan every 8 hours as needed and you can also take the Doxylamine/pyridoxine tablets once at night to help with nausea the next day. Follow-up with your OBGYN. Return with any emergent concerns. Patient Language: Swazi Prescriptions: New metoclopramide HCl [Reglan] 5 mg tablet 5 mg PO Q8H PRN (Reason: nausea and vomiting) Qty: 20 0RF Unisom (doxylamine) 25 mg tablet 25 mg PO HS PRN (Reason: nausea and vomiting) Qty: 20 0RF pyridoxine (vitamin B6) 25 mg tablet 25 mg PO DAILY Qty: 20 0RF cephalexin 500 mg capsule 500 mg PO Q12H 5 Days Qty: 10 0RF No Action midodrine 2.5 mg tablet 2.5 mg PO TID PRN (Reason: Hypotension) propranolol 10 mg tablet 12.5 mg PO BID hydrocodone-acetaminophen 5-325 mg tablet 1 tablet PO Q4H PRN (Reason: pain) Qty: 14 0RF Follow-up/Referrals: Mary,RADHA Morin [Primary Care Provider, Unknown] Time of Disposition: 06:51
[2025-03-07] MEDS: METOCLOPRAMIDE HCL INJ 10 MG/2 ML VIAL IV PUSH (06:50)
[2025-03-07] MEDS: PYRIDOXINE HCL 100 MG/ML VIAL (*SPC) 50 MG IV PUSH (06:50)
[2025-03-07] MEDS: DEXTROSE 5%/LACTATED RINGERS 1,000 ML 1000 ML IV CONT (06:50)
[2025-03-07 08:11] VITALS: BP 127/61; PULSE 77; RESP 14; O2SAT 100
== END 2025-03-07 08:57 | disposition home or self-care (01) ==
PROVIDERS: Emergency Provider Student in an Organized Health Care Education/Training Program; PCP Nurse Practitioner
DX: O21.9 Vomiting of pregnancy, unspecified (principal); O26.891 Other specified pregnancy related conditions, first trimester; R82.71 Bacteriuria; Z20.822 Contact with and (suspected) exposure to COVID-19; O99.331 Smoking (tobacco) complicating pregnancy, first trimester; F17.290 Nicotine dependence, other tobacco product, uncomplicated; Z3A.01 Less than 8 weeks gestation of pregnancy
CPT/HCPCS: 36415; 80053; 81001; 81025; 83690; 85025; 87637; 96361; 96374; 96375; 99284; J1200; J2765; J3415; J7121